=== PATIENT | male | born 1960 | race African-American/Black ===

== ENCOUNTER 2016-11-13 17:03 | Inpatient (IN) | payer OTHER ==
[~2016-11-13] VITALS: Ht 175.3 cm; Wt 98.9 kg
--- NOTE | ~2016-11-13 | EKG ---
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
[~2016-11-13 17:03] MED LIST: ARTIFICIAL TEAR15 M3; ASPIR 8181 MG PO; ASPIRIN EC325 MG PO; ATORVASTATIN CA40 MG; BACTRIM DS TAB1 EAC1 PO; BIOFREEZE118 ML; BUSPIRONE HCL10 MG PO; CARVEDILOL12.5 MG PO; COLACE100 MG PO; COREG25 MG; CYCLOBENZAPRINE5 MG PO; FLONASE 0.05%50 MCG; FLONASE 0.05%50 MCG NASAL; HUMALOG100 UNIT/1; HYDRALAZINE; IRON325 PO; LANTUS SUBQ; LANTUS100 UNIT/M; LEVAQUIN 500 M500 M2 PO; LIDODERM 5%1 PATC1 TRANSDERM; MILK OF MA2400 MG/10; NICOTINE TRANSD21 M1; NICOTINE TRANSD21 M1 TRANSDERM; OXYCODONE HCL10 MG; PEPCID20 MG PO; PERCOCET 5-3251 EACH PO; PLAVIX 75 MG TA75 M1 PO; SENOKOT-S1 TA1 PO; UNICOMPLEX M TA1 TA1 PO; VALIUM5 MG PO; VISTARIL 25 MG25 M1
[2016-11-13 17:11] VITALS: BP 102/67
[2016-11-13 17:39] LABS: HEMATOCRIT 36.4 % (42.0-52.0); HEMOGLOBIN 11.9 gm/dL (14.0-18.0); MCH 26.1 pg (26.0-34.0); MCHC 32.7 % (28.0-37.0); MCV 79.7 fL (80.0-100.0); PLATELET COUNT 479 thou/uL (150-400); RBC 4.57 mil/uL (4.50-6.00); RDW 18.7 % (10.5-14.5); WBC 7.3 thou/uL (4.0-11.0)
[2016-11-13 17:40] LABS: MANUAL DIFF YES
[2016-11-13] MEDS ORDERED: ASPIR 8181 MG PO (17:46)
[2016-11-13] MEDS ORDERED: COREG6.25 MG PO (17:49)
[2016-11-13] MEDS ORDERED: HUMALOG100 UNIT/1 SUBQ (17:54)
[2016-11-13] MEDS ORDERED: LEVEMIR SUBQ (17:55)
[2016-11-13] MEDS ORDERED: MAGNESIUM OXID400 MG PO (17:57)
[2016-11-13] MEDS ORDERED: BENADRYL25 MG PO (17:59)
[2016-11-13] MEDS ORDERED: LASIX 80 MG TAB80 MG PO (18:00)
[2016-11-13] MEDS ORDERED: DUONEB 2.5-0.5 M3 ML INH (18:02)
[2016-11-13] MEDS ORDERED: LEVAQUIN 750 M750 MG PO (18:04)
[2016-11-13] MEDS ORDERED: ANTIVERT25 MG PO (18:05)
[2016-11-13] MEDS ORDERED: BISACODYL5 MG PO (18:07)
[2016-11-13] MEDS ORDERED: TYLENOL325 MG PO (18:10)
[2016-11-13 18:11] LABS: CALCIUM 9.3 mg/dL (8.5-10.1); CREATININE 2.5 mg/dL (0.6-1.3); POTASSIUM 4.3 mmol/L (3.5-5.1)
[2016-11-13] MEDS ORDERED: CARVEDILOL6.25 MG PO (18:11)
[2016-11-13] MEDS ORDERED: VALIUM5 MG PO (18:13)
[2016-11-13] MEDS ORDERED: CARBIDOPA-LEVO1 EAC2 PO (18:15)
[2016-11-13 18:30] LABS: TOTAL CELL COUNT 100
[2016-11-13 19:31] LABS: URINE BILIRUBIN NEGATIVE (Negative); URINE BLOOD NEGATIVE (Negative); URINE COLOR YELLOW; URINE GLUCOSE-RANDOM* NEGATIVE (Negative); URINE KETONES NEGATIVE (Negative); URINE LEUKOCYTES-REFLEX NEGATIVE (Negative); URINE PROTEIN (DIPSTICK) 1+ (Negative); URINE UROBILINOGEN 0.2 E.U./dl (0.2-1.0)
[2016-11-13 19:36] LABS: CASTS None Seen /LPF (None Seen); CRYSTALS None Seen /LPF (None Seen); SQUAMOUS None Seen /LPF (0-3); URINE RBC None Seen /HPF (0-2); URINE WBC-REFLEX 0-5 Rare /HPF (0-5)
[2016-11-13 21:38] VITALS: BP 132/75
[2016-11-13 21:45] VITALS: BP 147/82
[2016-11-14 04:30] VITALS: BP 120/68
[2016-11-14 06:34] LABS: CALCIUM 9.2 mg/dL (8.5-10.1); CREATININE 2.4 mg/dL (0.6-1.3); POTASSIUM 4.2 mmol/L (3.5-5.1)
[2016-11-14 06:37] LABS: ALBUMIN 2.8 g/dL (3.4-5.0)
[2016-11-14 08:21] VITALS: BP 135/81
[2016-11-14 17:30] VITALS: BP 120/69
[2016-11-14 20:00] VITALS: BP 134/82
[2016-11-14 21:53] VITALS: BP 120/69
[2016-11-15 04:00] VITALS: BP 121/69
[2016-11-15 05:58] LABS: HEMATOCRIT 33.5 % (42.0-52.0); HEMOGLOBIN 11.2 gm/dL (14.0-18.0); MCH 26.6 pg (26.0-34.0); MCHC 33.3 % (28.0-37.0); MCV 79.8 fL (80.0-100.0); PLATELET COUNT 477 thou/uL (150-400); RDW 18.4 % (10.5-14.5); WBC 8.9 thou/uL (4.0-11.0)
[2016-11-15 06:25] LABS: MANUAL DIFF YES
[2016-11-15 06:30] LABS: CALCIUM 9.8 mg/dL (8.5-10.1); CREATININE 2.1 mg/dL (0.6-1.3); POTASSIUM 4.1 mmol/L (3.5-5.1)
[2016-11-15 07:40] VITALS: BP 118/69
[2016-11-15 08:34] LABS: ABSOLUTE NEUTROPHILS 5.8 thou/uL (1.4-8.2); ANISOCYTOSIS SLIGHT; POIKILOCYTOSIS SLIGHT; TOTAL CELL COUNT 100
[2016-11-15 16:20] VITALS: BP 119/69
[2016-11-15 20:00] VITALS: BP 118/71
[2016-11-16 04:00] VITALS: BP 123/62
[2016-11-16 05:41] LABS: ABSOLUTE NEUTROPHILS 4.4 thou/uL (1.4-8.2); BASOPHILS 0.9 % (0.0-2.0); HEMATOCRIT 34.2 % (42.0-52.0); HEMOGLOBIN 10.8 gm/dL (14.0-18.0); LYMPHOCYTES 25.2 % (24.0-44.0); MANUAL DIFF NO; MCH 25.6 pg (26.0-34.0); MCHC 31.6 % (28.0-37.0); PLATELET COUNT 441 thou/uL (150-400); POLYS 58.9 % (36.0-66.0); RBC 4.22 mil/uL (4.50-6.00); RDW 17.8 % (10.5-14.5); WBC 7.5 thou/uL (4.0-11.0)
[2016-11-16 05:54] LABS: CREATININE 1.9 mg/dL (0.6-1.3)
[2016-11-16 07:30] VITALS: BP 134/73
[2016-11-16 16:19] VITALS: BP 113/64
[2016-11-16 20:12] VITALS: BP 120/66
[2016-11-17 05:16] VITALS: BP 135/77
[2016-11-17 06:32] LABS: HEMATOCRIT 33.1 % (42.0-52.0); HEMOGLOBIN 10.6 gm/dL (14.0-18.0); MCH 25.7 pg (26.0-34.0); MCHC 32.1 % (28.0-37.0); PLATELET COUNT 439 thou/uL (150-400); RBC 4.13 mil/uL (4.50-6.00); RDW 18.2 % (10.5-14.5); WBC 7.2 thou/uL (4.0-11.0)
[2016-11-17 06:35] LABS: MANUAL DIFF YES
[2016-11-17 06:52] LABS: CALCIUM 9.2 mg/dL (8.5-10.1); CREATININE 1.8 mg/dL (0.6-1.3)
[2016-11-17 08:30] VITALS: BP 146/82
[2016-11-17 09:05] LABS: ABSOLUTE NEUTROPHILS 5.2 thou/uL (1.4-8.2); ANISOCYTOSIS 1+; PLATELET ESTIMATE INCREASED; TOTAL CELL COUNT 100
[2016-11-17] MEDS ORDERED: MIRALAX17 GM PO (10:34)
[2016-11-17] MEDS ORDERED: MUCINEX DM TABL1 TA1 PO (10:34)
[2016-11-17 15:41] VITALS: BP 122/71
[2016-11-17 20:00] VITALS: BP 125/65
[2016-11-18 08:08] VITALS: BP 141/80
[2016-11-18 10:47] LABS: CALCIUM 8.9 mg/dL (8.5-10.1); CREATININE 1.7 mg/dL (0.6-1.3); POTASSIUM 3.6 mmol/L (3.5-5.1)
[2016-11-18 16:14] VITALS: BP 125/73
== END 2016-11-18 18:20 | DRG 682 ==
LOC: ER 17:03 → 4E 20:50 → EROBS 20:50 → 4E 21:40
PROVIDERS: Hospitalist; Physician Assistant
DX: N17.0 Acute kidney failure with tubular necrosis (principal); E43 Unspecified severe protein-calorie malnutrition; I13.0 Hypertensive heart and chronic kidney disease with heart failure and stage 1 through stage 4 chronic kidney disease, or unspecified chronic kidney disease; E87.1 Hypo-osmolality and hyponatremia; K21.9 Gastro-esophageal reflux disease without esophagitis; E11.22 Type 2 diabetes mellitus with diabetic chronic kidney disease; I25.10 Atherosclerotic heart disease of native coronary artery without angina pectoris; F41.9 Anxiety disorder, unspecified; E78.5 Hyperlipidemia, unspecified; E86.0 Dehydration; N18.2 Chronic kidney disease, stage 2 (mild); I50.9 Heart failure, unspecified; I73.9 Peripheral vascular disease, unspecified; Z68.32 Body mass index [BMI] 32.0-32.9, adult; Z89.411 Acquired absence of right great toe
CPT/HCPCS: 10183

== ENCOUNTER 2019-05-09 12:07 | Emergency (ER) | payer OTHER ==
[~2019-05-09] VITALS: Ht 182.9 cm; Wt 90.7 kg
[~2019-05-09 12:07] MED LIST changes: +ANTIVERT25 MG PO; +BENADRYL25 MG PO; +BISACODYL5 MG PO; +CARBIDOPA-LEVO1 EAC2 PO; +CARVEDILOL6.25 MG PO; +COREG6.25 MG PO; +DUONEB 2.5-0.5 M3 ML INH; +HUMALOG100 UNIT/1 SUBQ; +LASIX 80 MG TAB80 MG PO; +LEVAQUIN 750 M750 MG PO; +LEVEMIR SUBQ; +MAGNESIUM OXID400 MG PO; +MIRALAX17 GM PO; +MUCINEX DM TABL1 TA1 PO; +TYLENOL325 MG PO
[2019-05-09 12:19] LABS: URINE BILIRUBIN NEGATIVE (Negative); URINE BLOOD NEGATIVE (Negative); URINE CLARITY CLEAR; URINE COLOR YELLOW; URINE GLUCOSE-RANDOM* NEGATIVE (Negative); URINE KETONES NEGATIVE (Negative); URINE LEUKOCYTES-REFLEX NEGATIVE (Negative); URINE NITRITE-REFLEX NEGATIVE (Negative); URINE PROTEIN (DIPSTICK) TRACE (Negative); URINE UROBILINOGEN 0.2 E.U./dl (0.2-1.0)
[2019-05-09 12:34] LABS: ABSOLUTE NEUTROPHILS 5.7 thou/uL (1.4-8.2)
[2019-05-09 12:38] LABS: BASOPHILS 0.9 % (0.0-2.0); HEMATOCRIT 29.1 % (42.0-52.0); HEMOGLOBIN 9.4 gm/dL (14.0-18.0); LYMPHOCYTES 17.5 % (24.0-44.0); MCH 25.2 pg (26.0-34.0); MCHC 32.4 g/dL (28.0-37.0); MCV 77.9 fL (80.0-100.0); MONOCYTES 7.9 % (1.0-8.0); PLATELET COUNT 376 thou/uL (150-400); POLYS 68.7 % (36.0-66.0); RBC 3.74 mil/uL (4.50-6.00); RDW 16.7 % (10.5-14.5); WBC 8.3 thou/uL (4.0-11.0)
[2019-05-09 12:50] LABS: CREATININE 1.3 mg/dL (0.7-1.3); POTASSIUM 3.8 mmol/L (3.5-5.1)
[2019-05-09 12:56] LABS: ALBUMIN 2.7 g/dL (3.4-5.0); TOTAL BILIRUBIN 0.5 mg/dL (<0.1-1.0); TOTAL PROTEIN 7.9 g/dL (6.4-8.2)
[2019-05-09] MEDS ORDERED: KEFLEX500 M1 PO (14:21)
[2019-05-09] MEDS ORDERED: BACTRIM DS TAB1 EACH PO (14:21)
[2019-05-09 14:30] VITALS: BP 130/59
== END 2019-05-09 14:30 | disposition home or self-care (01) ==
LOC: ER 12:07
PROVIDERS: Emergency Medicine
DX: L02.214 Cutaneous abscess of groin (principal); T84.091A Other mechanical complication of internal left hip prosthesis, initial encounter; E11.9 Type 2 diabetes mellitus without complications; I13.0 Hypertensive heart and chronic kidney disease with heart failure and stage 1 through stage 4 chronic kidney disease, or unspecified chronic kidney disease; N18.9 Chronic kidney disease, unspecified; I50.9 Heart failure, unspecified; I73.9 Peripheral vascular disease, unspecified; F41.9 Anxiety disorder, unspecified; E78.5 Hyperlipidemia, unspecified; M54.9 Dorsalgia, unspecified; G89.29 Other chronic pain; Y83.9 Surgical procedure, unspecified as the cause of abnormal reaction of the patient, or of later complication, without mention of misadventure at the time of the procedure; Y92.89 Other specified places as the place of occurrence of the external cause; Z79.4 Long term (current) use of insulin

== ENCOUNTER 2019-09-06 11:08 | Inpatient (IN) | payer OTHER ==
[~2019-09-06] VITALS: Ht 182.9 cm; Wt 113.4 kg
[2019-09-06] VITALS (8 sets, daily range): BP systolic 93–140; BP diastolic 43–70
[~2019-09-06 11:08] MED LIST changes: +BACTRIM DS TAB1 EACH PO; -CARVEDILOL6.25 MG PO; +KEFLEX500 M1 PO
[2019-09-06 11:42] LABS: HEMATOCRIT 27.4 % (42.0-52.0); HEMOGLOBIN 8.4 gm/dL (14.0-18.0); MCH 24.3 pg (26.0-34.0); MCHC 30.8 g/dL (28.0-37.0); MCV 78.9 fL (80.0-100.0); PLATELET COUNT 302 thou/uL (150-400); RBC 3.48 mil/uL (4.50-6.00); RDW 16.7 % (10.5-14.5); WBC 12.9 thou/uL (4.0-11.0)
[2019-09-06 11:44] LABS: BE(vivo) -2.2 mmol/L (-2 to +3); HCO3 24.8 mmol/L (22.0-26.0); PCO2 53.9 mmHg (35.0-45.0); PO2 83.3 mmHg (80.0-100.0); sO2 94.8 % (92.0-98.0)
[2019-09-06 11:46] LABS: pH 7.281 (7.360-7.450)
[2019-09-06 11:52] LABS: ANION GAP 11 mmol/L (7-16); BUN 56 mg/dL (7-18); CHLORIDE 91 mmol/L (98-107); CO2 25 mmol/L (21-32); CREATININE 3.6 mg/dL (0.7-1.3); GLUCOSE 129 mg/dL (74-106); POTASSIUM 5.4 mmol/L (3.5-5.1); SODIUM 127 mmol/L (136-145)
[2019-09-06 12:00] LABS: MAGNESIUM 1.8 mg/dL (1.8-2.4); TROPONIN-I <0.06 ng/mL (<0.06)
[2019-09-06 12:17] LABS: ABSOLUTE NEUTROPHILS 9.7 thou/uL (1.4-8.2); METAMYELOCYTES 3 %; PLATELET ESTIMATE NORMAL
[2019-09-06 14:39] LABS: BE(vivo) -1.5 mmol/L (-2 to +3); HCO3 25.9 mmol/L (22.0-26.0); PCO2 58.6 mmHg (35.0-45.0); PO2 143.1 mmHg (80.0-100.0); pH 7.264 (7.360-7.450); sO2 98.4 % (92.0-98.0)
--- NOTE | 2019-09-06 14:58 | NUR ---
REPORT CALLED TO ANGELA LINDO AT 4693.
[2019-09-06 15:03] LABS: FOLIC ACID 19.9 ng/mL (8.6-58.9)
--- NOTE | 2019-09-06 15:32 | 2DMMODE ---
[facility] [place] [address] 2 D/M-MODE ECHOCARDIOGRAM Name: GILDARDOPALAK QUAN Room #: 170-4 ADM IN ..#: [id number] Admission: 09/06/19 Attend Phys: Jin Ness MD Discharge: Date of : 58 Report #: [id number] THIS REPORT FOR: //name// APPROVED REPORT Study performed: 09/06/2019 14:33:59 EXAM: Comprehensive 2D, Doppler, and color-flow Echocardiogram Patient Location: ER Room #: 4 Status: routine BSA: 2.34 HR: 88 bpm BP: 94/54 mmHg Rhythm: NSR Other Information Study Quality: Adequate Indications Diabetes Dyspnea Hypertension/HDD Respiratory failure 2D Dimensions RVDd: 42.21 mm IVSd: 8.85 (7-11mm) LVOT Diam: 21.83 (18-24mm) LVDd: 54.55 mm PWd: 5.85 (7-11mm) Ascending Ao: 27.50 (22-36mm) LVDs: 43.80 (25-40mm) Aortic Root: 30.37 mm IVC: 20.00 mm Volumes Left Atrial Volume (Systole) Single Plane 4CH: 74.69 mL Single Plane 2CH: 59.14 mL LA ESV Index: 32.00 mL/m2 Aortic Valve AoV Peak Toby.: 1.17 m/s AO Peak Gr.: 5.43 mmHg LVOT Max P.90 mmHg LVOT Max V: 0.85 m/s KENNEY Vmax: 2.73 cm2 Mitral Valve [facility] [address] [place] [address] 2 D/M-MODE ECHOCARDIOGRAM Name: PALAK EWING Room #: 170-4 [facility] IN [facility]#: [id number] Admission: 09/06/19 Attend Phys: Jin Ness MD Discharge: Date of : 58 Report #: [id number] E/A Ratio: 1.2 MV Decel. Time: 133.91 ms MV E Max Toby.: 1.03 m/s MV A Toby.: 0.83 m/s MV PHT: 38.83 ms IVRT: 69.20 ms Pulmonary Valve PV Peak Toby.: 0.83 m/s PV Peak Gr.: 2.73 mmHg Tricuspid Valve TR Peak Toby.: 3.80 m/s TR Peak Gr.: 57.83 mmHg PA Pressure: 68.00 mmHg Left Ventricle Left ventricle is at the upper limits of normal. There is akinesis in the inferior wall. There is akinesis in the posterior wall. There is severe hypokinesis in the lateral wall. There is normal left ventricular wall thickness. Left ventricular ejection fraction is mild to moderately decreased. LVEF is 35-40%. Grade IV - fixed restrictive diastolic dysfunction. Right Ventricle Right ventricle is at the upper limits of normal. The right ventricular systolic function is normal. Atria Left atrium is at the upper limits of normal. Right atrium is at the upper limits of normal. Aortic Valve The aortic valve is normal in structure. No aortic regurgitation is present. There is no aortic valvular stenosis. Mitral Valve The mitral valve is normal in structure. Mild mitral regurgitation. No evidence of mitral valve stenosis. Tricuspid Valve The tricuspid valve is normal in structure. There is mild tricuspid regurgitation. Estimated PAP 68 mmHg. There is moderate pulmonary hypertension. Pulmonic Valve The pulmonary valve is normal in structure. There is no pulmonic [facility] [address] [place] [address] 2 D/M-MODE ECHOCARDIOGRAM Name: PALAK EWING QUAN Room #: 170-4 ADM IN .R.#: [id number] Admission: 09/06/19 Attend Phys: Jin Ness MD Discharge: Date of : 58 Report #: [id number] valvular regurgitation. Great Vessels The aortic root is normal in size. IVC is dilated and collapses <50% with inspiration. Pericardium There is no pericardial effusion. <Conclusion> Left ventricle is at the upper limits of normal. Left ventricular ejection fraction is mild to moderately decreased. There is akinesis in the inferior wall. There is akinesis in the posterior wall. There is severe hypokinesis in the lateral wall. LVEF is 35-40%. Grade IV - fixed restrictive diastolic dysfunction. Right ventricle is at the upper limits of normal. Left atrium is at the upper limits of normal. The aortic valve is normal in structure. Mild mitral regurgitation. There is mild tricuspid regurgitation. Estimated PAP 68 mmHg. There is moderate pulmonary hypertension. The aortic root is normal in size. There is no pericardial effusion. <ELECTRONICALLY SIGNED> By: Emmanuel Wheeler MD, FACC 09/06/19 [phone] Emmanuel Wheeler MD, FACC /INF
[2019-09-06] MEDS ORDERED: COLACE100 MG PO ×2 (17:34)
[2019-09-06] MEDS ORDERED: ALLEGRA ALLERGY60 MG PO (17:36)
[2019-09-06] MEDS ORDERED: OXYCODONE HCL5 M1 PO (17:41)
[2019-09-06] MEDS ORDERED: PERCOCET 5-3251 EACH PO (17:42)
[2019-09-06] MEDS ORDERED: LIPITOR40 MG PO (18:08)
[2019-09-06] MEDS ORDERED: ALPRAZOLAM XR3 MG PO (18:08)
[2019-09-06] MEDS ORDERED: BASAGLAR K100 UNIT/1 SUBQ (18:09)
[2019-09-06] MEDS ORDERED: BISACODYL10 MG RECTAL (18:10)
[2019-09-06] MEDS ORDERED: CAL-GEST200 MG PO (18:11)
[2019-09-06] MEDS ORDERED: CYCLOBENZAPRINE10 MG PO (18:12)
[2019-09-06] MEDS ORDERED: FLONASE 0.05%50 MCG NARES (18:13)
[2019-09-06] MEDS ORDERED: SLOW FE142 MG PO (18:13)
[2019-09-06] MEDS ORDERED: NEURONTIN100 MG PO (18:14)
[2019-09-06] MEDS ORDERED: FUROSEMIDE 40 M40 MG PO (18:14)
[2019-09-06] MEDS ORDERED: HUMIRA PEN40 MG/0.4 SUBQ (18:16)
[2019-09-06] MEDS ORDERED: HYDROCORTISONE120 M1 TOP (18:17)
[2019-09-06] MEDS ORDERED: HYDROXYZINE HCL25 M2 PO (18:18)
[2019-09-06] MEDS ORDERED: LACTULOSE10 GM/152 PO (18:20)
[2019-09-06] MEDS ORDERED: LOPERAMIDE2 MG PO (18:21)
[2019-09-06] MEDS ORDERED: MILK OF MA400 MG/5 M PO (18:22)
[2019-09-06] MEDS ORDERED: MINERIN CREME113 GM TOP (18:23)
[2019-09-06] MEDS ORDERED: MONTELUKAST SODI4 M1 PO (18:24)
[2019-09-06] MEDS ORDERED: NAPROXEN SODIU220 M2 PO (18:24)
[2019-09-06] MEDS ORDERED: OMEPRAZOLE 20 M20 M1 PO (18:25)
[2019-09-06] MEDS ORDERED: MIRALAX17 GM PO (18:26)
[2019-09-06] MEDS ORDERED: PROMETHAZINE PO (18:27)
[2019-09-06] MEDS ORDERED: GAS RELIEF80 MG PO (18:28)
[2019-09-06] MEDS ORDERED: VENTOLIN HFA INH8 GM INH (18:28)
[2019-09-06] MEDS ORDERED: RISPERDAL0.5 MG PO (18:28)
[2019-09-06] MEDS ORDERED: VITAMIN B-121000 MC2 SUBLING (18:29)
--- NOTE | 2019-09-06 19:03 | NUR ---
PT. ARRIVED AT FLOOR AROUND 1600; PT. ALERT; ST. WANTS MASK OF; BYPAP; EDUCATED ABOUT THE NEED OF BYPAP ON; STRONG ODOR COMMING FROM [place]; ALERT TO PERSON; KNOWS IS THE HOSPITAL, BUT NOT NAME; ST. WANTS TO GO HOME; EDUCATED ABOUT THE NEED TO STAY; ORDERS RECEIVED; AROUND 1700 DR. MEDRANO AT THE BED SIDE; REQUEST TRANSFER TO ICU; ORDERS RECEIVED; GAS MAKER NOTIFIED; CALLED REPORT TO K; AROUND 1745 PT. TRANSFER TO ICU; ADMISSION PERFORMED; ASSESSMENT CHARGED;
--- NOTE | 2019-09-06 19:13 | NUR ---
ASSESSMENTS AND INTERVENTIONS DOCCUMENTED. PATIENT TRANSFERRED TO THE UNIT VIA RT AND CCU RN AT 1820.
[2019-09-06 19:35] LABS: % SATURATION 8 % (20-39); IRON 10 ug/dL (65-175); TIBC 127 ug/dL (250-450)
[2019-09-07] VITALS (20 sets, daily range): BP systolic 92–147; BP diastolic 52–84
[2019-09-07 05:18] LABS: ABSOLUTE NEUTROPHILS 10.7 thou/uL (1.4-8.2); BASOPHILS 0.1 % (0.0-2.0); EOSINOPHILS 0.4 % (0.0-3.0); HEMATOCRIT 26.4 % (42.0-52.0); HEMOGLOBIN 8.1 gm/dL (14.0-18.0); LYMPHOCYTES 6.2 % (24.0-44.0); MCH 24.5 pg (26.0-34.0); MCHC 30.5 g/dL (28.0-37.0); MCV 80.2 fL (80.0-100.0); MONOCYTES 3.3 % (1.0-8.0); PLATELET COUNT 285 thou/uL (150-400); RDW 16.5 % (10.5-14.5); WBC 11.9 thou/uL (4.0-11.0)
[2019-09-07 05:32] LABS: ALBUMIN 2.2 g/dL (3.4-5.0); ANION GAP 12 mmol/L (7-16); BUN 63 mg/dL (7-18); CALCIUM 8.3 mg/dL (8.5-10.1); CHLORIDE 93 mmol/L (98-107); CHOLESTEROL 84 mg/dL (<200); CO2 24 mmol/L (21-32); CREATININE 3.6 mg/dL (0.7-1.3); GLUCOSE 127 mg/dL (74-106); HDL CHOLESTEROL 8 mg/dL (>40); LDL CHOLESTEROL 49 mg/dL (<100); MAGNESIUM 1.8 mg/dL (1.8-2.4); POTASSIUM 5.8 mmol/L (3.5-5.1); SODIUM 129 mmol/L (136-145); TC:HDL 10.5 Ratio (Not establshd); TRIGLYCERIDE 137 mg/dL (<150); VLDL 27 mg/dL (<40)
[2019-09-07 05:50] LABS: SERUM ASSESSMENT Clear
[2019-09-07 06:08] LABS: GLYCOHEMOGLOBIN (HGB A1C) 9.3 % (4.8-5.6)
[2019-09-07 06:26] LABS: URINE BILIRUBIN NEGATIVE (Negative); URINE BLOOD 3+ (Negative); URINE CLARITY CLOUDY; URINE COLOR YELLOW; URINE GLUCOSE-RANDOM* NEGATIVE (Negative); URINE KETONES TRACE (Negative); URINE LEUKOCYTES-REFLEX 2+ (Negative); URINE NITRITE-REFLEX NEGATIVE (Negative); URINE PROTEIN (DIPSTICK) 1+ (Negative); URINE UROBILINOGEN 0.2 E.U./dl (0.2-1.0)
[2019-09-07 06:33] LABS: AMP/METHAMP Negative (Negative); BARBITURATES Negative (Negative); BENZODIAZEPINES Negative (Negative); COCAINE Negative (Negative); METHADONE Negative (Negative); OPIATES POSITIVE (Negative); PCP Negative (Negative)
[2019-09-07 06:40] LABS: AMORPHOUS URATES Moderate /LPF (None Seen); SQUAMOUS 0-3 Few /LPF (0-3)
[2019-09-07 06:41] LABS: URINE WBC-REFLEX 6-15 Few /HPF (0-5)
[2019-09-07 06:42] LABS: URINE CREATININE-RANDOM* 49.8 mg/dL
[2019-09-07 06:45] LABS: COARSE GRANULAR CASTS 4-10 Moderate /LPF (None Seen)
[2019-09-07 08:05] LABS: INR 1.1; PROTIME 11.9 Seconds (9.3-11.4)
[2019-09-07 08:40] LABS: BE(vivo) -6.9 mmol/L (-2 to +3); HCO3 19.9 mmol/L (22.0-26.0); PCO2 46.1 mmHg (35.0-45.0); PO2 101.8 mmHg (80.0-100.0); pH 7.254 (7.360-7.450); sO2 96.7 % (92.0-98.0)
[2019-09-07 08:42] LABS: APTT 43.9 Seconds (24.5-32.8)
--- NOTE | 2019-09-07 11:15 | NUR ---
Case opened to follow for dc planning. Pt is a ltc resident at [facility] and has lived there for over a year. He was at [facility] prior to that. They are holding his bed and note that he has skilled Medicare days available if needed at dc. PT/OT/ST ordered. He is currently in ICU with sepsis/pneumonia. Pt noted to have buttock wound as well. [facility] updated. The pt is a&ox4 but forgetful and frequently repeats the same question. He confirmed his sister suresh is his emergency contact. [facility] indicates his dtr occasionally comes to visit. He is nonambulatory but is up in a w/c most days with an ackward sitting posture. He has his cell phone in a pouch around his neck. He has $32 in wood and he requested it be sent to security. Security notified and they have retrieved it. Will follow along and assist with dc to SNF at [facility] when medically ready.
--- NOTE | 2019-09-07 12:51 | NUR ---
WOUND CONSULT; THIS PATIENT IS VERY AGITATED AND AND CONFUSED. THE BILATERAL BUTTOCKS AND SACRAL WOUNDS LOOK LIKE THE EARLY ETIOLOGY WAS LIKELY FRICTION, BUT IMPOSSIBLE TO TELL. NOW THAT THE TISSUES ARE OPEN AND MORE VULNERABLE TO PRESSURE FORCES AND INFECTION IT IS CURRENTLY A STAGE 3 AND WAS PRESENT ON ADMISSION. RECOMMENDATIONS; ZGUARD TO WOUND BED, COVER WITH ABD, DAILY/PRN. RN PRESENT
--- NOTE | 2019-09-07 13:04 | NUR ---
CHART REVIEWED. [facility] AND STAFF USES A LIFT WITH Pt TO GET HIM IN A RECLINED W/C. Pt NOT APPROPRIATE FOR SKILLED P.T.
[2019-09-07 13:23] LABS: CALCIUM 8.5 mg/dL (8.5-10.1); CREATININE 3.6 mg/dL (0.7-1.3); POTASSIUM 5.1 mmol/L (3.5-5.1)
[2019-09-07 13:27] LABS: ALBUMIN 2.1 g/dL (3.4-5.0); PHOSPHORUS 6.2 mg/dL (2.5-4.9)
--- NOTE | 2019-09-07 17:14 | NUR ---
PT IS A GCS OF 14, CO PAIN TO BACK AND LEGS A TIMES. VSS, PT AFIBRILE. ORDERS RCVD TO TRANSFER PT OUT OF ICU. REPORT CALLED AND GIVEN TO ACCEPTING NURSE. THIS NURSE TRIED TO NOTIFY THE FAMILY BUT UNABLE TO GET A HOLD OF ANYONE ON RECORDS.
--- NOTE | 2019-09-07 17:36 | NUR ---
ASSUMMED PT CARE AT APPROXIMATEY 1630. PT A&O X4. ASSESSMENT CHARTED. FALL PRECAUTIONS IN PLACE. VITAL SIGNS STABLE. PT DENIES HAVING CHEST PAIN. PT DENIES HAVING SOB. PT STATED HE HAS CHRONIC BACK PAIN. PT RECEIVED ANALGESICS FOR PAIN. PT STATED ANALGESICS HELPED RELIEVE PAIN. PT COMFORTABLE IN BED. PT DENIES HAVING FURTHER CONCERNS AT THIS TIME.
[2019-09-08 04:13] LABS: CALCIUM 8.4 mg/dL (8.5-10.1); CREATININE 3.1 mg/dL (0.7-1.3); POTASSIUM 5.3 mmol/L (3.5-5.1)
[2019-09-08 04:30] VITALS: BP 130/76
[2019-09-08 04:36] LABS: HEMATOCRIT 24.8 % (42.0-52.0); HEMOGLOBIN 7.7 gm/dL (14.0-18.0); MCH 24.4 pg (26.0-34.0); MCV 78.8 fL (80.0-100.0); RBC 3.15 mil/uL (4.50-6.00); RDW 16.7 % (10.5-14.5); WBC 9.9 thou/uL (4.0-11.0)
--- NOTE | 2019-09-08 05:10 | NUR ---
ASSUMED PT CARE AT 1900. PT IS ALERT AND CONFUSED. PT IS AGITATED TOWARDS RN THROUGH OUT THE SHIFT. FALL PRECAUTION IN PLACE PT REFUSED SOME SCHEDULED MEDS. PT HAD STATED HE WAS GETTING POSIONED SO HE DIDNT WANT TO TAKE HIS MEDICATION. PT WAS AGITATED THROUGHOUT THE NIGHT. DENIES ANY FURTHER NEEDS AT TIME.
[2019-09-08 08:07] VITALS: BP 168/104
--- NOTE | 2019-09-08 12:12 | EKG ---
[address] [address] ELECTROCARDIOGRAM REPORT Name: PALAK EWING QUAN Room #: 210-P ADM IN M.R.#: [id number] Admission: 09/06/19 Attend Phys: Jin Ness MD Discharge: Date of : 58 Report #: [id number] THIS REPORT FOR: //name// [facility] ED Test Date: 2019-09-06 Test Time: 11:15:25 Pat Name: PALAK EWING Department: Room: 210 Gender: M Night Custodian: : 1960 Requested By: Harsh Sousa Order Number: [id number] MD: Henri Keller Measurements Intervals Balko Rate: 92 P: 4 IA: 164 QRS: 235 QRSD: 121 T: 15 QT: 391 QTc: 484 Interpretive Statements Sinus rhythm Nonspecific intraventricular conduction delay Compared to ECG 11/13/2016 17:39:15 Intraventricular conduction delay now present Myocardial infarct finding no longer present T-wave abnormality no longer present Electronically Signed On 09-08-2019 12:12:31 MUSEUM GUIDE by Henri Keller [email or web address] <ELECTRONICALLY SIGNED> By: Henri Keller MD 09/08/19 1212 1115 1115 Henri Keller MD /TRUNG
--- NOTE | 2019-09-08 12:20 | NUR ---
[facility] SPOKE WITH LATESHA IN ADM SHE RECEIVED UPDATE.
--- NOTE | 2019-09-08 15:12 | NUR ---
No weekend dc anticipated. [facility] updated per the dc supply planner. Will reassess wednesday for dc back to their SNF. Pt is being seen by therapy and wound care.
[2019-09-08 16:36] VITALS: BP 139/81
[2019-09-08 20:48] VITALS: BP 122/75
[2019-09-09 05:31] VITALS: BP 123/72
[2019-09-09 05:39] LABS: HEMATOCRIT 24.9 % (42.0-52.0); HEMOGLOBIN 7.8 gm/dL (14.0-18.0); MCH 24.6 pg (26.0-34.0); MCHC 31.2 g/dL (28.0-37.0); MCV 78.7 fL (80.0-100.0); RBC 3.16 mil/uL (4.50-6.00); RDW 16.7 % (10.5-14.5); WBC 9.5 thou/uL (4.0-11.0)
[2019-09-09 05:52] LABS: ALBUMIN 2.1 g/dL (3.4-5.0); CALCIUM 8.1 mg/dL (8.5-10.1); CREATININE 2.6 mg/dL (0.7-1.3); PHOSPHORUS 4.4 mg/dL (2.5-4.9); POTASSIUM 4.9 mmol/L (3.5-5.1)
--- NOTE | 2019-09-09 06:30 | NUR ---
ALERT.FORGETFUL.REFUSED TO BE TURNED.PAIN WELL CONTROLLED.NS AT 75 ML/HR.ALATORRE TO DD.MONITOR SHOWS SR,SB.O2 2L NC.WILL CONTINUE POC.
--- NOTE | 2019-09-09 10:27 | NUR ---
ORIENTED TO SELF. REPORTEDLY CAN BE COMBATIVE, CALM NOW. ALLOWS BLOOD GLUCOSE TAKEN. MRSA ISOLATION. REPOSITIONED FOR BREAKFAST, APPETITE BRISK AFTER TRAY SETUP. BUN 67, CR 2.6 NOTED. SR/SB PER TELE. FREQUENT ROUNDING; WILL CONTINUE TO MONITOR.
[2019-09-09 19:35] VITALS: BP 134/78
[2019-09-10 04:32] LABS: ALBUMIN 2.2 g/dL (3.4-5.0); CALCIUM 8.5 mg/dL (8.5-10.1); CREATININE 2.4 mg/dL (0.7-1.3); PHOSPHORUS 3.9 mg/dL (2.5-4.9); POTASSIUM 4.9 mmol/L (3.5-5.1)
[2019-09-10 06:07] VITALS: BP 123/69
--- NOTE | 2019-09-10 06:19 | NUR ---
ALERT.FORGETFUL.REFUSED TO BE TURNED.PAIN WELL CONTROLLED.COMPLAIN OF COUGH AFTER GUIAFENESIN WAS GIVEN.PATIENT REQUESTED FOR BENADRYL.CELI TO LIZZETTE.MONITOR SHOWS SINUS RHYTHM.POC CONTINUED.
[2019-09-10 08:00] VITALS: BP 127/73
[2019-09-10 12:00] VITALS: BP 138/75
[2019-09-10 16:00] VITALS: BP 133/75
--- NOTE | 2019-09-10 16:01 | NUR ---
ASSUMED CARE AT 0700, SHIFT ASSESSMENT DONE, MEDS GIVEN, VSS. REPORTED BACK PAIN, PRN PAIN MEDS GIVEN. RECEIVING IV ANTIBIOTICS. NSR ON TELE. HAD A BM TODAY. WOUND CARE DONE. WILL CONTINUE TO ASSESS AND ASSIST WITH ADLs NEEDED.
[2019-09-10 19:49] VITALS: BP 141/73
--- NOTE | 2019-09-11 03:58 | NUR ---
ALERT.FORGETFUL.REFUSED TO BE TURNED.PAIN WELL CONTROLLED.PATIENT STATES HE DIDN'T SLEEP EVEN AFTER RECEIVING BENADRYL REQUESTED.MONITOR SHOWS SINUS RHYTHM.PATIENT IS HOPING TO GO BACK TO [facility] TODAY.POC CONTINUED.
[2019-09-11 04:37] LABS: HEMATOCRIT 27.2 % (42.0-52.0); HEMOGLOBIN 8.3 gm/dL (14.0-18.0); MCH 24.2 pg (26.0-34.0); MCHC 30.7 g/dL (28.0-37.0); MCV 78.9 fL (80.0-100.0); RBC 3.45 mil/uL (4.50-6.00); RDW 16.9 % (10.5-14.5); WBC 16.7 thou/uL (4.0-11.0)
[2019-09-11 04:49] LABS: ALBUMIN 2.2 g/dL (3.4-5.0); CALCIUM 8.3 mg/dL (8.5-10.1); CREATININE 2.1 mg/dL (0.7-1.3); PHOSPHORUS 3.5 mg/dL (2.5-4.9); POTASSIUM 5.1 mmol/L (3.5-5.1)
[2019-09-11 05:35] VITALS: BP 151/75
[2019-09-11 07:40] VITALS: BP 153/84
--- NOTE | 2019-09-11 11:22 | NUR ---
WOUND CARE F/U assessed pt w/ staffing operations manager TAMIKA, cooperative and agreeable to turning and performing wound care, sacral area still excoriated w/ bleeding left buttock cheek, some healing present, strongly encouraged pt to off loading, turn more frequently, photos taken as dc possible today, dry ulcer left great toe, no drainage, painted w/ betadine RECOMMENDATIONS; cont current tx w/ turning and off loading more
[2019-09-11 11:40] VITALS: BP 140/77
--- NOTE | 2019-09-11 12:05 | NUR ---
ASSUMED CARE AT 0700, SHIFT ASSESSMENT DONE, MEDS GIVEN, VSS. REPORTED PAIN, PRN PAIN MEDS GIVEN. PATENT LEGAL ASSISTANT HERE THIS AM, WOUND DRESSING CHANGE DONE, PHOTOGRAPH TAKEN. POSSIBLE DC TODAY. AWAITING FOR CHEST XRAY AND URINALYSIS. NSR ON TELE, 2LNC, WILL CONTINUE TO ASSESS AND ASSIST WITH ADLs NEEDED.
[2019-09-11 12:18] LABS: URINE BILIRUBIN NEGATIVE (Negative); URINE BLOOD 2+ (Negative); URINE CLARITY CLEAR; URINE COLOR YELLOW; URINE GLUCOSE-RANDOM* TRACE (Negative); URINE KETONES NEGATIVE (Negative); URINE LEUKOCYTES-REFLEX NEGATIVE (Negative); URINE NITRITE-REFLEX NEGATIVE (Negative); URINE PROTEIN (DIPSTICK) NEGATIVE (Negative); URINE UROBILINOGEN 0.2 E.U./dl (0.2-1.0)
[2019-09-11 12:27] LABS: BACTERIA-REFLEX 1-9 Few /HPF (None Seen); CASTS None Seen /LPF (None Seen); CRYSTALS None Seen /LPF (None Seen); SQUAMOUS None Seen /LPF (0-3); URINE RBC 3-10 Few /HPF (0-2); URINE WBC-REFLEX 0-5 Rare /HPF (0-5)
[2019-09-11] MEDS ORDERED: MUCINEX600 MG PO (12:54)
[2019-09-11] MEDS ORDERED: TORSEMIDE20 MG PO (12:54)
[2019-09-11] MEDS ORDERED: PULMICORT0.5 MG/21 INH (12:54)
[2019-09-11] MEDS ORDERED: AUGMENTIN 875-1 EACH PO (12:57)
--- NOTE | 2019-09-11 13:43 | NUR ---
PT DISCHARGING TODAY [place] [facility] [place] DC ORDERS/SUMMARY TO FACILITY RECEIVED CONFIRMATON AND SPOKE WITH LATESHA IN ADM SHE ARRANGED TRANSPORT BY [facility] FOR 1630 TODAY. NOTIFIED PT'S SISTER (DAVID) OF DC AND TIME OF TRANSPORT. UNIT NOTIFIED AND CHART COPY PER US. RN TO CALL REPORT TO [phone].
--- NOTE | 2019-09-12 06:24 | HC ---
[facility] [place] [address] CONSULTATION Name: PALAK EWING Room #: 210-P [facility] IN M.R.#: [id number] Admission: 09/06/19 Attend Phys: Jin Ness MD Discharge: 09/11/19 Date of : 58 Report #: [id number] THIS REPORT FOR: //name// CC: Jin Ness Svetlana Valencia DATE OF SERVICE: 09/08/2019 REASON FOR CONSULTATION: Elevated creatinine. HISTORY OF PRESENT ILLNESS: History is obtained from the medical charts. The patient is a very poor historian. He is not able to provide me with any details about his medical problems. He presented from his [facility] with shortness of breath and hypoxemia. He is known to have hypertension, heart failure, DVT with peripheral vascular disease. He is also known to have osteomyelitis, status post an amputation of his right big toe. The patient was sent to our facility because of hypoxemia. He was also on the hypotensive side. The patient is known to have longstanding diabetes mellitus and hypertension. Labs on presentation showed that the patient's creatinine was elevated at 3.6 with persistent hyperkalemia. I am being consulted to manage his chronic kidney disease. Unfortunately, the patient does not know his baseline. MEDICATIONS: Listed amongst his medications the followin. Sulfamethoxazole. 2. Atorvastatin. 3. Gabapentin. 4. Lasix. 5. Joan. 6. Albuterol. 7. Naproxen. 8. Loperamide. 9. Insulin. 10. Humira for unclear reasons to me. PAST MEDICAL HISTORY: Extensive and includes the followin. Diabetes mellitus. 2. Hypertension. 3. History of osteomyelitis post-amputation of his big toe. 4. Immunocompromised status. 5. Peripheral vascular disease. 6. Deep venous thrombosis. 7. Ankylosing spondylitis. 8. Hyperlipidemia. 9. Low back pain. 10. Cholecystectomy. 11. Remote history of bile duct dilatation. [facility] [address] [place] [address] CONSULTATION Name: PALAK EWING QUAN Room #: 210-[facility] IN [facility].#: [id number] Admission: 09/06/19 Attend Phys: Jin Ness MD Discharge: 09/11/19 Date of : 58 Report #: [id number] 12. Bilateral hip replacement. SOCIAL HISTORY: Unobtainable given the patient's mental status; however, it does look like that he resides in a nursing facility. ALLERGIES: NSAIDs. FAMILY HISTORY: Unobtainable given the patient's mental status. REVIEW OF SYSTEMS: Unobtainable given the patient's mental status. PHYSICAL EXAMINATION: GENERAL: He is disoriented. VITAL SIGNS: Blood pressure is 130/76, pulse rate is 72, temperature is 36.6. HEAD AND NECK: No jugular venous distention. CHEST: Decreased air entry bilaterally. CARDIOVASCULAR: No rub detected. ABDOMEN: Soft, nontender. LOWER EXTREMITIES: Chronic venous stasis changes with missing and amputated great toe on the right side. LABORATORY DATA: Laboratory values reviewed. Sodium is 131, potassium is 5.3, BUN is 68, creatinine is down to 3.1. UA with +1 protein and dirty looking appearance with red blood cells, white blood cells. Cultures are pending. ASSESSMENT, IMPRESSION AND PLAN: 1. Acute kidney injury. 2. Chronic kidney disease with an unknown baseline. 3. Cardiomyopathy. 4. Remote history of ____ status, maintained on Humira. 5. Pulmonary hypertension. 6. Acute respiratory failure with hypoxemia. 7. Pneumonia. 8. Hypotension on presentation. 9. Hyperkalemia. The patient's creatinine seems to be improving, not sure about his baseline. His hyperkalemia is persistent and I will initiate him on appropriate medication for that. It does look like that the recent worsening of his creatinine and hyperkalemia is due to the recently started Bactrim or Septra and this should resolve. Urine output seems to be adequate. 10. Continue IV fluid. 11. We will continue to follow. <ELECTRONICALLY SIGNED> By: Jasmeet Mike MD 09/12/19 0624 0700 0739 Jasmeet Mike MD /nt
== END 2019-09-11 17:04 | DRG 871 ==
LOC: ER 11:08 → ICU 13:24 → EROBS 13:24 → 2N 15:46 → ICU 17:34 → 2N 09-07 16:26
PROVIDERS: Emergency Medicine; Hospitalist; Internal Medicine Pulmonary Disease; Nurse Practitioner; ADMIT Hospitalist
PROC: 5A09357 Assistance with Respiratory Ventilation, Less than 24 Consecutive Hours, Continuous Positive Airway Pressure (ICD-10-PCS; principal; 2019-09-06)
DX: A41.9 Sepsis, unspecified organism (principal); L89.153 Pressure ulcer of sacral region, stage 3; J96.21 Acute and chronic respiratory failure with hypoxia; G93.41 Metabolic encephalopathy; I50.43 Acute on chronic combined systolic (congestive) and diastolic (congestive) heart failure; J96.22 Acute and chronic respiratory failure with hypercapnia; J15.212 Pneumonia due to Methicillin resistant Staphylococcus aureus; I13.0 Hypertensive heart and chronic kidney disease with heart failure and stage 1 through stage 4 chronic kidney disease, or unspecified chronic kidney disease; N17.9 Acute kidney failure, unspecified; E87.1 Hypo-osmolality and hyponatremia; I42.9 Cardiomyopathy, unspecified; E11.51 Type 2 diabetes mellitus with diabetic peripheral angiopathy without gangrene; N18.9 Chronic kidney disease, unspecified; E11.22 Type 2 diabetes mellitus with diabetic chronic kidney disease; E78.5 Hyperlipidemia, unspecified; F41.9 Anxiety disorder, unspecified; K21.9 Gastro-esophageal reflux disease without esophagitis; G89.29 Other chronic pain; M54.9 Dorsalgia, unspecified; F17.210 Nicotine dependence, cigarettes, uncomplicated; E86.0 Dehydration; E87.5 Hyperkalemia; R14.0 Abdominal distension (gaseous); D64.9 Anemia, unspecified; Z96.643 Presence of artificial hip joint, bilateral; I27.20 Pulmonary hypertension, unspecified; I95.9 Hypotension, unspecified; R65.20 Severe sepsis without septic shock; I25.10 Atherosclerotic heart disease of native coronary artery without angina pectoris; I08.1 Rheumatic disorders of both mitral and tricuspid valves; E11.65 Type 2 diabetes mellitus with hyperglycemia; G31.9 Degenerative disease of nervous system, unspecified; Z79.899 Other long term (current) drug therapy; Z79.4 Long term (current) use of insulin; Z88.8 Allergy status to other drugs, medicaments and biological substances; Z86.718 Personal history of other venous thrombosis and embolism; Z89.411 Acquired absence of right great toe; Z90.49 Acquired absence of other specified parts of digestive tract
CPT/HCPCS: 10078; 10081

== ENCOUNTER 2020-11-05 16:52 | Inpatient (IN) | payer OTHER ==
[~2020-11-05] VITALS: Ht 170.2 cm; Wt 74.8 kg
[2020-11-05 16:52] VITALS: BP 139/64
[~2020-11-05 16:52] MED LIST changes: +ALLEGRA ALLERGY60 MG PO; +ALPRAZOLAM XR3 MG PO; +AUGMENTIN 875-1 EACH PO; +BASAGLAR K100 UNIT/1 SUBQ; +BISACODYL10 MG RECTAL; +CAL-GEST200 MG PO; +CYCLOBENZAPRINE10 MG PO; +FLONASE 0.05%50 MCG NARES; +FUROSEMIDE 40 M40 MG PO; +GAS RELIEF80 MG PO; +HUMIRA PEN40 MG/0.4 SUBQ; +HYDROCORTISONE120 M1 TOP; +HYDROXYZINE HCL25 M2 PO; +LACTULOSE10 GM/152 PO; +LIPITOR40 MG PO; +LOPERAMIDE2 MG PO; +MILK OF MA400 MG/5 M PO; +MINERIN CREME113 GM TOP; +MONTELUKAST SODI4 M1 PO; +MUCINEX600 MG PO; +NAPROXEN SODIU220 M2 PO; +NEURONTIN100 MG PO; +OMEPRAZOLE 20 M20 M1 PO; +OXYCODONE HCL5 M1 PO; +PROMETHAZINE PO; +PULMICORT0.5 MG/21 INH; +RISPERDAL0.5 MG PO; +SLOW FE142 MG PO; +TORSEMIDE20 MG PO; +VENTOLIN HFA INH8 GM INH; +VITAMIN B-121000 MC2 SUBLING
[2020-11-05 19:35] LABS: HEMOGLOBIN 10.9 gm/dL (14.0-18.0); RDW 18.4 % (10.5-14.5)
[2020-11-05 19:38] LABS: CALCIUM 9.1 mg/dL (8.5-10.1); CREATININE 1.3 mg/dL (0.7-1.3); HEMATOCRIT 36.1 % (42.0-52.0); MCH 25.1 pg (26.0-34.0); MCHC 30.3 g/dL (28.0-37.0); MCV 82.7 fL (80.0-100.0); PLATELET COUNT 441 thou/uL (150-400); RBC 4.37 mil/uL (4.50-6.00); WBC 11.5 thou/uL (4.0-11.0)
[2020-11-05 19:44] LABS: ALBUMIN 2.1 g/dL (3.4-5.0); TOTAL BILIRUBIN 0.4 mg/dL (0.2-1.0); TOTAL PROTEIN 7.8 g/dL (6.4-8.2)
[2020-11-05 20:05] LABS: ABSOLUTE NEUTROPHILS 7.5 thou/uL (1.4-8.2); ANISOCYTOSIS 1+; ATYPICAL LYMPHS 1 %
[2020-11-05 22:50] VITALS: BP 125/68; BP 134/74
[2020-11-06 01:00] VITALS: BP 120/75
--- NOTE | 2020-11-06 03:28 | NUR ---
ASSUMED PT CARE FROM THE ER AFTER MIDNIGHT. PT IS A&OX4 BUT FORGETFUL. PT IS GRUMPY BUT WILL WARM UP TO YOU. PT REFUSED TO LET ME TAKE PICTURE OF HIS WOUNDS. PT HAS A SACRAL AND LEG WOUND. PT IS ON 2 LITERS NASAL CANULA. PT HAS A LEFT UPPER ARM PIC. PT STATES THAT HE IS IN PAIN AT A 10, I ADMINISTERED HYDROCODONE. PT STATES THAT OXYCODONE WORKS BETTER FOR HIM. PT IS NPO. WILL CONTINUE TO MONITOR.
[2020-11-06 05:24] LABS: HEMATOCRIT 32.6 % (42.0-52.0); MCH 25.4 pg (26.0-34.0); MCHC 30.8 g/dL (28.0-37.0); MCV 82.4 fL (80.0-100.0); RBC 3.95 mil/uL (4.50-6.00); RDW 17.8 % (10.5-14.5); WBC 9.2 thou/uL (4.0-11.0)
[2020-11-06 05:39] LABS: CREATININE 1.2 mg/dL (0.7-1.3); POTASSIUM 3.4 mmol/L (3.5-5.1)
[2020-11-06 07:10] VITALS: BP 127/68
--- NOTE | 2020-11-06 09:01 | NUR ---
ASSUMED CARE AT 0700. PT IS A&O X3. PT DENIES PAIN, SOA, N/V. WOUND ON RIGHT FOOT. SURGERY WILL BE DONE TODAY FOR DEBRIDEMENT. PT IS STIFF ON RIGHT SHOULDER AND NECK. RULED OUT STROKE. PICC LINE IV IS INTACT AND SHOWS NO SIGNS OF REDNESS OR SWELLING. HEEL PROTECTORS BILATERAL. SOFT ABD. VSS. BSG WNL. DRY SKIN ON BILATERAL FOOT WITH PEELING. SCD HOSE ARE IN PLACE. CALL LIGHT WITHIN REACH. PT STILL REFUSES ME TO TAKE PICTURES OF WOUNDS OR ALLOW ME TO TURN HIM TO SEE HIS BUTTOCK FOR ANY WOUNDS. WILL CONTINUE TO MONITOR.
--- NOTE | 2020-11-06 13:51 | NUR ---
PT IS FROM [facility] FAXED CLINICAL UPDATE TO FACILITY RECEIVED CONFIRMATION AND LEFT MSG WITH LATESHA IN ADM.
--- NOTE | 2020-11-06 15:49 | NUR ---
ASSESSMENT: CM REVIEWED CHART AND SPOKE WITH PT. PT WAS ADMITTED FROM [facility] DUE TO LEFT FOOT WOUND. PT WAS TO HAVE DEBRIDEMENT TODAY BUT WAS RESCHEDULED FOR TOMORROW OR WEDNESDAY. PT NORMALLY USES A WHEELCHAIR AT THE FACILITY. CM SPOKE WITH LATESHA WHITE AT [facility] WHO REPORTS PT IS NORMALLY CONTRACTED ON HIS RIGHT SIDE AND REPORTS SHE IS UNSURE THE HX OF IT BUT KNOWS HE HAS A CECY IN HIS BACK. CM UPDATED ATTENDING. PLANS ARE FOR PT TO RETURN TO [facility] ONCE MEDICALLY STABLE. PT IS CURRENTLY ON IV ANBX. BLOCK PAVER TO SEND CLINICAL TO FACILITY. CM WILL CONTINUE TO FOLLOW TO ASSIST NEEDED.
--- NOTE | 2020-11-06 16:00 | HC ---
[facility] [place] [address] CONSULTATION Name: PALAK EWING QUAN Room #: 435-P [facility] IN M.R.#: [id number] Admission: 11/05/20 Attend Phys: Jin Ness MD Discharge: Date of : 58 Report #: [id number] THIS REPORT FOR: cc: FAM - No family physician/PCP FAM - No family physician/PCP Lam Bhatti MD ~ DATE OF SERVICE: 11/06/2020 INFECTIOUS DISEASE CONSULTATION ATTENDING PHYSICIAN: Dr. Ness. REASON FOR EVALUATION: Chronic left foot wound involving the right heel. HISTORY OF PRESENT ILLNESS: He was referred from ____ half-way facility, was felt to have possibility of osteomyelitis, had been on therapy with parenteral Zosyn since 10/22/2020. He is unable to give much in the way of history. He denies significant pain at this point. He is tentatively scheduled to undergo operative debridement on 11/07/2020. Initial imaging studies did not confirm any changes that would suggest osteomyelitis. He has had COVID testing, which was negative as well. Sed rate was 55, CRP of 49.7. He was empirically started on vancomycin. He is pending superficial culture. He denies fevers or chills. His appetite has been satisfactory. No pulmonary or gastrointestinal related complaints. He is maintained on supplemental oxygen at 2 liters per nasal cannula. He has been afebrile. ALLERGIES: NONSTEROIDALS AND TRAMADOL. CURRENT MEDICATIONS: Include famotidine, vancomycin, budesonide, insulin lispro, ipratropium, albuterol inhaler, hydrocodone, ondansetron. PAST MEDICAL HISTORY: Includes diabetes mellitus type 2, has been complicated by diffuse vasculopathy, has peripheral vascular disease, cardiomyopathy, congestive heart failure, chronic renal insufficiency, hyperlipidemia, anxiety, reflux, and depression. SOCIAL HISTORY: Disabled. Resides in a facility. FAMILY HISTORY: Noncontributory. REVIEW OF SYSTEMS: Otherwise, unremarkable. PHYSICAL EXAMINATION: GENERAL: Appears chronically ill and undernourished, is pleasant, cooperative, in hpnv-[id number]-ospprssa distress. [facility] [address] [place] [address] CONSULTATION Name: GILDARDOPALAK QUAN Room #: 435-P [facility] IN .R.#: [id number] Admission: 11/05/20 Attend Phys: Jin Ness MD Discharge: Date of : 58 Report #: [id number] VITAL SIGNS: Temperature 98.4, pulse 93, respirations 16, and blood pressure is 127/68. SKIN: Warm, dry, no rashes. HEENT: Normocephalic. Extraocular muscles intact. NECK: Supple. LUNGS: Diminished breath sounds. HEART: Regular, soft systolic murmur. ABDOMEN: Soft, nontender. EXTREMITIES: Bilateral lower extremities have changes consistent with significant dermopathy, likely diabetes related perhaps some venous stasis as well. Does have a dressing over the right distal lower extremity. GENITOURINARY: Deferred. RECTAL: Deferred. LABORATORY DATA: Electrolytes: Sodium 142, potassium 3.4, chloride 105, bicarbonate 28, anion gap of 9, BUN and creatinine 9 and 1.2. Estimated GFR of 75. CBC: White count of 9.2, H and H of 10.0 and 32.6, and platelets of 429. CT of the right foot showed previous chronic amputation of the distal first metatarsal and great toe, previous chronic amputation second toe, leading with the base of the proximal phalanx. No evidence currently of bony changes to suggest chronic osteomyelitis. Sed rate of 55. Liver functions, alkaline phosphatase elevated at 160, otherwise unremarkable. Albumin of 2.1, total protein 7.8. CRP of 49.7. Chest x-ray, normal size heart size and pulmonary vascularity, some density across the right chest, there is question of some atelectasis versus pneumonitis. ASSESSMENT AND PLAN: Distal right lower extremity chronic wound with concern about deeper infection. At this point, he is on vancomycin. It would be interesting to know if they had done previous cultures given the record that suggest he has been on Zosyn, I would favor more of gram-negative or perhaps polymicrobial etiology. We will await operative cultures. At this point, he is not overtly toxic. We will continue wound care as prescribed. We will follow procedurally and will add incentive spirometry and if he will be able to benefit from that. Try to optimize nutritional status. We will monitor expectantly. <ELECTRONICALLY SIGNED> By: Lam Bhatti MD 11/06/20 1600 1502 1547 Lam Bhatti MD /nt
[2020-11-06 16:05] VITALS: BP 139/63
[2020-11-06 19:21] VITALS: BP 117/71
--- NOTE | 2020-11-07 06:28 | NUR ---
ASSESSED AT START OF SHIFT. PT A&OX3 CONFUSED. C/O PAIN MANAGED BY PO PAIN MED. IV INTACT AND SL. RT FOOT WOUND SWABBED AND SENT TO LAB. PT YELLS OUT AND CAN BE ABUSIVE WITH WORDS. REPOSITIONED FOR COMFORT. WOUND PICTURES TAKEN. PT NPO AT MIDNIGHT FOR SX TOMORROW. FALL PREC IN PLACE WILL CONT TO MONITOR.
[2020-11-07 08:12] VITALS: BP 124/79
--- NOTE | 2020-11-07 09:45 | NUR ---
assumed care at 0700. pt is a&o 2-3. iv is on left fA and no signs of redness or swelling. waiting on vanco trough from the lab before i can hang the vanco. pt complains of pain and was given hydrocodone. bedrest. incontient. pt complains of right stiffness and right neck. 2 L of 02 and tolerating well. peripheral boot bilteral. wound on left foot. soft abd. pt will have debridement today hopefully. achs.
--- NOTE | 2020-11-07 11:47 | NUR ---
ON-GOING ASSESSMENT: CM REVIEWED CHART. PT IS GOING FOR DEBRIDEMENT TODAY. CM NOTIFIED LIASON AT [facility]. CM WILL CONTINUE TO FOLLOW TO ASSIST NEEED. PLANS TO RETURN TO [facility] ONCE STABLE.
[2020-11-07 12:34] LABS: CALCIUM 9.3 mg/dL (8.5-10.1); CREATININE 1.1 mg/dL (0.7-1.3); POTASSIUM 4.3 mmol/L (3.5-5.1)
[2020-11-07 15:42] VITALS: BP 136/82
[2020-11-07 18:54] VITALS: BP 136/78
--- NOTE | 2020-11-08 03:51 | NUR ---
11-07-20 CARE TRANSFERRED 1899. PT AAOX3, VSS, RR EVEN AND NONLABORED ON RA, LUNGS SOUNDS CLEAR, DIMINISHED, HT RR. PT REPORTS PAIN AND HAS BEEN MANAGED BY PRN MEDICATION. PT HAS BEEN NPO AFTER MIDNIGHT WITH POSSIBLE DEBRIMENT IN AM. PT LFARM IV CLEAN, DRY AND PATENT, PT HAS TOLERATED MEDICATION WELL.ZERO S/S OF ACUTE DISTRESS NOTED, PT WILL CONTINUE TO BE MONITOR PER PROTOCOL.
[2020-11-08 03:52] VITALS: BP 154/78
[2020-11-08 07:09] VITALS: BP 130/72
--- NOTE | 2020-11-08 10:39 | NUR ---
Assumed care of pt at 0700. Pt was taken to pre-op for surgery this am. Incontinent. A&o 2-3. Forgetful. 1L O2. Fall precautions in place. Will continue to monitor.
[2020-11-08 12:00] VITALS: BP 146/78
--- NOTE | 2020-11-08 13:33 | NUR ---
ON-GOING ASSESSMENT: CM REVIEWED CHART AND SPOKE WITH ATTENDING. PT IS HAVING DEBRIDEMENT TODAY. PT REMAINS ON IV ANBX AND AWAITING FURTHER RECS FROM ID. PT IS FROM [facility] AND WILL RETURN THERE ONCE MEDICALLY STABLE. CM FAXED UPDATED CLINICAL TO [facility] AND NOTIFIED LIASON. CM ALSO FAXED NEGATIVE COVID TEST TO FACILITY. CONTACT LATESHA WHITE AT [facility] ONCE STABLE FOR DISCHARGE AT [phone]. [facility]:[phone] CM ATTEMPTED TO CONTACT PTS SISTER DAVID AT [phone] BUT UNABLE TO REACH.
[2020-11-08 15:12] VITALS: BP 129/81
[2020-11-08 20:32] VITALS: BP 138/71
--- NOTE | 2020-11-09 03:34 | NUR ---
PT IS CONFUSED. SOMETIMES USES URINAL AND SOMETIMES IS INCONTINENT. PRAFO BOOTS IN PLACE. CONTINUES ON IV ANTIBIOTIC. AFEBRILE.
[2020-11-09 08:16] VITALS: BP 144/74
[2020-11-09 10:29] LABS: HEMATOCRIT 31.6 % (42.0-52.0); HEMOGLOBIN 9.6 gm/dL (14.0-18.0); MCH 25.3 pg (26.0-34.0); MCHC 30.4 g/dL (28.0-37.0); MCV 83.3 fL (80.0-100.0); RBC 3.79 mil/uL (4.50-6.00); RDW 18.3 % (10.5-14.5)
[2020-11-09 10:44] LABS: CALCIUM 9.3 mg/dL (8.5-10.1); CREATININE 1.1 mg/dL (0.7-1.3); MAGNESIUM 2.1 mg/dL (1.8-2.4); POTASSIUM 3.6 mmol/L (3.5-5.1)
[2020-11-09 16:41] VITALS: BP 139/86
--- NOTE | 2020-11-09 18:22 | NUR ---
ASSUMED CARE OF THE PATIENT AT 0715, PATIENT ALERT WITH CONFUSION, PATIENT YELLS OUT SURING THE SHIFT. PATIENT RESTING IN BED ALL SHIFT. NEW IV PLACED BY CATE/IV TEAM LEFT FOREARM, PATIENT RECEIVED BOTH IVPB'S, VANCO IVPB RESCHEDULED FOR 2300. PATIENT HAD ALL 3 MEALS. PADS CHANGED, BARRIER CREAM APPLIED, AND PATIENT REPOSITIONED. RIGHT FOOT WOUND CARE DONE BY DR MITCHELL. WILL CONTINUE TO MONITOR.
[2020-11-09 19:37] VITALS: BP 143/71
[2020-11-10 04:57] LABS: HEMATOCRIT 30.3 % (42.0-52.0); HEMOGLOBIN 9.2 gm/dL (14.0-18.0); MCH 25.3 pg (26.0-34.0); MCHC 30.4 g/dL (28.0-37.0); MCV 83.1 fL (80.0-100.0); RBC 3.65 mil/uL (4.50-6.00); RDW 18.7 % (10.5-14.5); WBC 9.2 thou/uL (4.0-11.0)
[2020-11-10 04:59] LABS: CALCIUM 8.8 mg/dL (8.5-10.1); MAGNESIUM 1.9 mg/dL (1.8-2.4); POTASSIUM 3.6 mmol/L (3.5-5.1)
--- NOTE | 2020-11-10 06:21 | NUR ---
PT ALERT TO SELF. CAN BE FORGETFUL AND CONFUSED. REFUSES CARE AND REQUIRES LOTS OF URGING AND ENCOURAGEMENT. REPOSITIONG PROVIDED. BARRIER CREAM APPLIED TO BUTTOCKS. USES URINAL.TAKES MEDS WHOLE AND DID NOT REFUSE.IV ABTS DCD. DRSG TO R FOOT INTACT. PRAFO BOOTS IN PLACE.
[2020-11-10 07:05] VITALS: BP 134/80
[2020-11-10 16:10] VITALS: BP 160/65
--- NOTE | 2020-11-10 18:48 | NUR ---
PT ASSESSED AT START OF SHIFT. VERY RESISTENT TO STAFF DOING CARE. REFUSING TO TURN ALL SHIFT. WOULD NOT ALLOW DSNG CHANGE. AT END OF SHIFT. ALLOWED [employer] ELECT[employer]OD[employer] SUPERVISOR'S TO CHANGE HIS SHEETS. DID TAKE HIS MEDICINE. REQUESTED PAIN MED AND TOOK IT.
[2020-11-10 19:29] VITALS: BP 132/83
--- NOTE | 2020-11-11 05:41 | NUR ---
Assumed care of patient this pm shift. Patient calm and cooperative. Alert and oriented x4. Takes medications whole with thin fluids. Falls precautions in place. Assessment shows no signs of acute distress. Patient was awake off and on through the night and requested food on several occasions. Left forearm saline lock in place. Patient stated that he was having pain and norco was given. We will continue to monitor per hospital policy.
[2020-11-11 05:56] VITALS: BP 141/79
[2020-11-11 07:30] VITALS: BP 149/80
[2020-11-11] MEDS ORDERED: RIFAMPIN 300 M300 MG PO (10:26)
[2020-11-11] MEDS ORDERED: MINOCYCLINE 5050 M1 PO (10:26)
[2020-11-11] MEDS ORDERED: HUMALOG100 UNIT/1 SUBQ (10:30)
--- NOTE | 2020-11-11 10:36 | NUR ---
ASSUMED CARE AT 0700. PT IS A&O X2. PT COMPLAINS OF PAIN AND WAS GIVEN HYDROCODONE FOR PAIN. PT IS TOLERATING WELL. IV IS INTACT AND SHOWS NO SIGNS OF REDNESS OR SWELLING. WOUND CARE WAS APPLIED TO RIGHT FOOT. NS--XEOFORM AND ABD DRESSING WITH SABINO WRAP. PT TOLERATE WELL. FALL PRECAUTION. CALL LIGHT WITHIN REACH. BSG WNL. VSS. WILL CONTINUE TO MONITOR.
--- NOTE | 2020-11-11 10:55 | NUR ---
ON-GOING ASSESSMENT: CM REVIEWED CHART AND SPOKE WITH PT AND HIS SISTER DAVID AND THEY ARE AGREEABLE WITH DISCHARGE TODAY BACK TO [facility]. CM NOTIFIED LIASON AT [facility] OF DISCHARGE AND FAXED D/C ORDERS AND CONFIRMED THEY RECEIVED THEM ALONG WITH NEGATIVE COVID TEST. CHART COPY WAS ORDERED AND PHOTOENGRAVER APPRENTICE WAS NOTIFIED. BEDSIDE RN HAS THE NUMBER FOR REPORT. LIASON AT [facility] IS ARRANGING TRANSPORTATION AND WILL CONTACT CM WITH THE TIME. CM WILL CONTINUE TO FOLLOW TO ASSIST NEDED.
--- NOTE | 2020-11-11 17:08 | PATH ---
[facility] [address] [place] [address] PATHOLOGY RPT PROCEDURE Name: ELMER EWING QUAN Room #: 435-P [facility] IN M.R.#: [id number] Admission: 11/05/20 Date of : 58 Discharge: 11/11/20 Report #: [id number] Path Case #: [id number] [facility] Accession Number: [id number] . 01 Material submitted: . heel - RIGHT HEEL DECUBITUS ULCER TISSUE. Modifiers: right . 01 Clinical history: . DEBRIDEMENT DECUBITUS ULCER OSTEOMYELITIS CHRONIC RESPIRATORY FAILURE UNSP WITH HYPOXIA OR HYPERCAPNIA . 02 Diagnosis: Right heel ulcer tissue, debridement: - Gangrenous necrosis and fibrinoid degeneration along with marked acute inflammation, consistent with wound tissue. (IUV:varun; 11/11/2020) QMS 11/11/2020 1542 Local . 02 Electronically signed: . Katrin Kelly MD, Pathologist NPI- [id number] . 01 Gross description: . The specimen is received in formalin, labeled "Elmer Ewing, right heel decubitus ulcer tissue" and consists of necrotic dark valdez/black tissue measuring 5.4 x 4.2 x 0.5 cm. Solutions Analyst tissue is submitted in A1. (SDY; 11/10/2020) SYU/SYU 11/10/2020 1057 Local . 02 Pathologist provided ICD-10: I96, L98.9 . 02 CPT . 607744 Specimen Comment: A courtesy copy of this report has been sent to [phone] Specimen Comment: Report sent to Performed at: [address], [place] [id number] MD Pawan Alamo MD Phone: [phone] Performed at: [address] [id number] MD Katrin Kelly MD Phone: [phone]
== END 2020-11-11 12:13 | DRG 622 ==
LOC: ER 16:52 → EROBS 20:57 → 4S 20:57 → EROBS 20:57 → 4S 23:46
PROVIDERS: Internal Medicine; Nurse Practitioner; Nurse Practitioner Family; ADMIT Hospitalist; ATTEND Hospitalist
PROC: 0JBQ0ZZ Excision of Right Foot Subcutaneous Tissue and Fascia, Open Approach (ICD-10-PCS; principal; 2020-11-08)
DX: E11.69 Type 2 diabetes mellitus with other specified complication (principal); L89.613 Pressure ulcer of right heel, stage 3; E43 Unspecified severe protein-calorie malnutrition; J96.10 Chronic respiratory failure, unspecified whether with hypoxia or hypercapnia; M86.8X7 Other osteomyelitis, ankle and foot; I13.0 Hypertensive heart and chronic kidney disease with heart failure and stage 1 through stage 4 chronic kidney disease, or unspecified chronic kidney disease; J96.11 Chronic respiratory failure with hypoxia; E11.51 Type 2 diabetes mellitus with diabetic peripheral angiopathy without gangrene; E78.5 Hyperlipidemia, unspecified; K21.9 Gastro-esophageal reflux disease without esophagitis; G89.29 Other chronic pain; S91.301A Unspecified open wound, right foot, initial encounter; N18.30 Chronic kidney disease, stage 3 unspecified; E11.22 Type 2 diabetes mellitus with diabetic chronic kidney disease; F41.9 Anxiety disorder, unspecified; J44.9 Chronic obstructive pulmonary disease, unspecified; X58.XXXA Exposure to other specified factors, initial encounter; I25.10 Atherosclerotic heart disease of native coronary artery without angina pectoris; M54.9 Dorsalgia, unspecified; Z20.822 Contact with and (suspected) exposure to COVID-19; Y93.89 Activity, other specified; Y92.89 Other specified places as the place of occurrence of the external cause; Y99.8 Other external cause status; Z79.4 Long term (current) use of insulin; Z79.899 Other long term (current) drug therapy; Z88.8 Allergy status to other drugs, medicaments and biological substances; Z68.25 Body mass index [BMI] 25.0-25.9, adult
CPT/HCPCS: 10195; 50010; 50101; 50386; 57091; 57119; 57120; 57192; 62110; 62900; 70005

== ENCOUNTER 2021-01-06 04:35 | Inpatient (IN) | payer OTHER ==
[2021-01-06] VITALS (7 sets, daily range): BP systolic 118–137; BP diastolic 61–91
[~2021-01-06] VITALS: Ht 185.4 cm; Wt 111.7 kg
[~2021-01-06 04:35] MED LIST changes: +MINOCYCLINE 5050 M1 PO; +RIFAMPIN 300 M300 MG PO
[2021-01-06 04:50] LABS: URINE BILIRUBIN NEGATIVE (Negative); URINE BLOOD 1+ (Negative); URINE CLARITY SL CLOUDY; URINE COLOR YELLOW; URINE GLUCOSE-RANDOM* NEGATIVE (Negative); URINE KETONES 1+ (Negative); URINE NITRITE-REFLEX NEGATIVE (Negative); URINE PROTEIN (DIPSTICK) 2+ (Negative); URINE SPECIFIC GRAVITY >= 1.030 (1.005-1.035); URINE UROBILINOGEN 0.2 E.U./dl (0.2-1.0)
[2021-01-06 04:51] LABS: URINE LEUKOCYTES-REFLEX 2+ (Negative)
[2021-01-06] MEDS ORDERED: TYLENOL325 M1 PO (04:59)
[2021-01-06 05:02] LABS: BACTERIA-REFLEX 1-9 Few /HPF (None Seen); FINE GRANULAR CASTS 0-3 Few /LPF (None Seen); HYALINE CASTS 4-10 Moderate /LPF (None Seen); MUCUS 0-3 Light strn/LPF (None Seen); SQUAMOUS 4-10 Moderate /LPF (0-3); URINE RBC 0-2 Rare /HPF (0-2); URINE WBC-REFLEX >25 Many /HPF (0-5)
[2021-01-06 05:03] LABS: CRYSTALS None Seen /LPF (None Seen); YEAST-REFLEX Present (None Seen)
[2021-01-06] MEDS ORDERED: [UNRECOGNIZED DRUG - OTHER] PO (05:09)
[2021-01-06] MEDS ORDERED: CARVEDILOL12.5 MG PO (05:10)
[2021-01-06 05:13] LABS: BASOPHILS 1.2 % (0.0-2.0); EOSINOPHILS 2.2 % (0.0-3.0); HEMATOCRIT 33.4 % (42.0-52.0); HEMOGLOBIN 10.5 gm/dL (14.0-18.0); LYMPHOCYTES 26.9 % (24.0-44.0); MCH 26.1 pg (26.0-34.0); MCHC 31.3 g/dL (28.0-37.0); MCV 83.2 fL (80.0-100.0); MONOCYTES 10.2 % (1.0-8.0); PLATELET COUNT 486 thou/uL (150-400); POLYS 59.5 % (36.0-66.0); RBC 4.01 mil/uL (4.50-6.00); RDW 15.3 % (10.5-14.5); WBC 8.4 thou/uL (4.0-11.0)
[2021-01-06] MEDS ORDERED: DETEMIR INSULIN SUBQ (05:13)
[2021-01-06] MEDS ORDERED: MINERIN CREME454 G1 TOP ×2 (05:19→12:45)
[2021-01-06] MEDS ORDERED: OXYCODONE PO (05:35)
[2021-01-06 05:36] LABS: CALCIUM 8.2 mg/dL (8.5-10.1); CREATININE 1.2 mg/dL (0.7-1.3); POTASSIUM 3.8 mmol/L (3.5-5.1)
[2021-01-06] MEDS ORDERED: SANTYL OINTMENT30 G1 TOP (05:40)
[2021-01-06 05:41] LABS: TROPONIN-I 8.26 ng/mL (<0.06)
[2021-01-06] MEDS ORDERED: VENTOLIN PO (05:46)
[2021-01-06] MEDS ORDERED: VITAMIN B-121000 MC2 SUBLING (05:47)
[2021-01-06] MEDS ORDERED: ALPRAZOLAM PO (06:16)
[2021-01-06 07:36] LABS: INR 1.1; PROTIME 11.9 Seconds (9.3-11.4)
--- NOTE | 2021-01-06 07:39 | EKG ---
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: nenita dorsey : 1960 Requested By: Sheridan Buneo Order Number: [id number] MD: Anoop Ng Measurements Intervals [place] Rate: 94 P: 52 CA: 164 QRS: 259 QRSD: 118 T: 7 QT: 420 QTc: 526 Interpretive Statements Sinus rhythm Left anterior fascicular block Low voltage, extremity leads Borderline ST elevation, lateral leads Compared to ECG 09/06/2019 11:15:25 Left anterior fascicular block now present Low QRS voltage now present ST (T wave) deviation now present Intraventricular conduction delay no longer present Electronically Signed On 01-06-2021 7:39:16 ICE RINK ATTENDANT by Anoop Ng [email or web address] <ELECTRONICALLY SIGNED> By: Anoop Ng MD, [facility] 01/06/21 0739 0550 0550 Anoop Ng MD, [facility] /EPI
--- NOTE | 2021-01-06 10:31 | NUR ---
Patient admits from [facility] with AMS. Patient is ltc resident at [facility] since 2018. Patient does not have a DPOA per facility that they are aware. Patient has been able to make decisions. [facility] reports patient decline when COVID positive in the fall. Dr Derik sullivan for [facility]. Attemted to call sister but no answer and requested "access code" at end to continuous rings. Casemgt following
--- NOTE | 2021-01-06 16:46 | NUR ---
PT. ARRIVED AT THE FLOOR AFTER SHIFT; PT. IRRITABLE; UPSET; ST. "I DO WANT TO BE IN THE BASEMENT"; REMAINED HE IS IN THE HOSPITAL; AGRESSIVE; ALERT TO PERSON; C/O PAIN OVER LLE AND L. KNEE; NO PRN PAIN MEDICATIONS; PHYSICIAN NOTIFIED; NO TEXT ON KRYPTO TEXT; PER CARDIO D/C IV FLUIDS; OK FOR PT. 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 "HE DOES NOT HAVE PAIN";"I TALKED TO HIM AND I TOLD HIM TO CALM DOWN"; "I AM PUTTING ORDERS"; ORDERS ON PLACED; THROUGH THE DAY PT. C/O PAIN DURING MOVEMENT; NO PRN PAIN MEDICATIONS ON PLACED; PHYSICIAN AWARE; PICTURES TAKEN; ZGARD APPLIED TO BUTTOCKS; INCONTINENT; THROUGH THE DAY PT. AGRESSIVE; CONFUSED; VERBAL ABUSIVE TOWAR STAFF; ASSESSMENT CHARGED; FOLLOWING POC; WILL PASS ON REPORT;
[2021-01-07 04:58] LABS: HEMATOCRIT 35.3 % (42.0-52.0); MCH 25.8 pg (26.0-34.0); MCHC 31.2 g/dL (28.0-37.0); MCV 82.7 fL (80.0-100.0); RBC 4.27 mil/uL (4.50-6.00); RDW 15.8 % (10.5-14.5)
[2021-01-07 05:11] LABS: ALBUMIN 2.4 g/dL (3.4-5.0); CALCIUM 8.9 mg/dL (8.5-10.1); CREATININE 1.3 mg/dL (0.7-1.3); POTASSIUM 3.8 mmol/L (3.5-5.1); TOTAL BILIRUBIN 0.8 mg/dL (0.2-1.0); TOTAL PROTEIN 7.8 g/dL (6.4-8.2)
[2021-01-07 05:30] VITALS: BP 130/72
[2021-01-07 08:00] VITALS: BP 113/55
[2021-01-07 12:00] VITALS: BP 111/70
--- NOTE | 2021-01-07 15:11 | NUR ---
Spoke with patients sister Karon. Updated patient at [facility] and likely transition to [facility] tomorrow with plan to return to [facility] upon return. Gave sister Karon number for unit to check on patient.
--- NOTE | 2021-01-07 15:41 | NUR ---
FAXED CLINICAL UPDATES TO [facility]. WILL CONFIRM WITH LATESHA/LIAISON THAT THEY RECEIVED. [facility] P [phone]; FAX [phone]
[2021-01-07 16:00] VITALS: BP 120/68
[2021-01-07 19:57] VITALS: BP 110/71
--- NOTE | 2021-01-07 20:10 | NUR ---
RECEIVED PT'S CARE AROUND 0735; PT. ON BED; ALERT; TALKING TO HIMSELF; PER NIGHT NURSE PT. ABLE TO VOID TWICE; MONITOR BLADDER BLADER SCANNER SHOWED 520 ML; PHYSICIAN NOTIFIED; NO ANSWER BACK ON KRYTO TEXT; PT. C/O PAIN OVER BLE; REQUESTED TYLENOL; PHYSICIAN NOTIFIED OVER KRYPTO TEXT; NO NEW ORDERS; NOTIFIED DURING ROUNDING; ASKED IF PT. ON FLOMAX; ST. "I DO NOT WANT TO PUT A ALATORRE"; NO PRN PAIN MEDICATION; AM MEDICATION GIVEN; ALERT TO PERSON; C/O PAIN DURING TURNINGS; TACTILE STIMULATION OVER BLE; NOTICED DECREASED VISION; REFUSED TO BE HELP DURING MEALS; WOUND CARE PERFORMED; TURNED FROM SIDE TO SIDE; ASSESSMENT CHARGED; FOLLOWING POC; PASSED ON REPORT; SR ON THE MONITOR;
[2021-01-08 03:45] VITALS: BP 116/67
[2021-01-08 05:37] VITALS: BP 102/66
[2021-01-08 07:38] VITALS: BP 104/55
[2021-01-08] MEDS ORDERED: CLOPIDOGREL75 MG PO (08:03)
[2021-01-08] MEDS ORDERED: SEROQUEL 25 MG25 M1 PO (08:03)
[2021-01-08] MEDS ORDERED: LANTUS SUBQ (08:04)
--- NOTE | 2021-01-08 08:51 | NUR ---
Note Given: Y Facility List Provided:Y Facility Malika: None chosen at this time Ayla Rice NP discussed BPCI with this pt 01/07/2021
--- NOTE | 2021-01-08 10:25 | NUR ---
[facility]DC FACILTY PAMPLET GIVEN, WITH BPCI LETTER
[2021-01-08 11:27] VITALS: BP 101/50
--- NOTE | 2021-01-08 15:12 | NUR ---
[facility]. Notified sister yesterday. Notfied [facility] today.
[2021-01-08 15:46] VITALS: BP 94/62
--- NOTE | 2021-01-08 16:00 | NUR ---
attempted to call sister unable to reach. She was aware yesterday of dc to [facility]
--- NOTE | 2021-01-08 16:08 | NUR ---
Spoke with dtr Evelyn at bedside. Discussed hospice services. Appears she wants Hospice for her father. She has spoken to patients brother and xwife, her mother. She wants to cont to think of DNR. She will be at hospital tomorrow. Discussed hospice services at [facility] and extra care to receive from hospice. Dtr [facility]. F[facility]ed referral to [facility]. Requested early am eval for hospice house. Hospice in process of attempting to arrange. They will call casemgt with time. [facility] to call dtr post eval. Casemgt to f/u with dtr in am.
--- NOTE | 2021-01-08 16:28 | NUR ---
[facility] RECEIVED CONFIRMATION AND LEFT MSG WITH LATESHA IN ADM.
--- NOTE | 2021-01-08 21:54 | NUR ---
CALLED UP TO PT NEW ROOM IN 528. EXPLAINED THAT THIS RN DID APPLY THE Z GAURD TO BOTTOCKS BUT I DID NOT GET A CHANCE TO DRESS PT HEEL WOUNDS.
--- NOTE | 2021-01-09 13:00 | HC ---
[facility] [place] [address] CONSULTATION Name: PALAK EWING QUAN Room #: 204-P [facility] IN M.R.#: [id number] Admission: 01/06/21 Attend Phys: Keli Evans Discharge: 01/08/21 Date of : 58 Report #: [id number] THIS REPORT FOR: cc: Svetlana Valencia,Svetlana Huang,Mark Heck MD ~ DATE OF SERVICE: 01/06/2021 CHIEF COMPLAINT: Gluteal pressure ulcerations and right lower extremity ulcerations. HISTORY OF PRESENT ILLNESS: This is a 60-year-old male with a history of coronary artery disease, congestive heart failure and diabetes, who was admitted from [facility]. He presented with altered mental status, was noted to have multiple ulcerations as detailed above and I have been asked to see him in this regard. The patient does not provide a lot of information about himself at this time. ALLERGIES: INCLUDE NONSTEROIDALS AND TRAMADOL. PAST MEDICAL HISTORY: Positive for history of type 2 diabetes mellitus, congestive heart failure, peripheral vascular disease, hypertension, chronic kidney disease, hyperlipidemia, anxiety, GERD, osteomyelitis, chronic back pain. SOCIAL HISTORY: Negative for alcohol or drug use. Currently lives at the [facility]. MEDICATIONS: Include Colace, Coreg, calcium carbonate, Flonase, hydroxyzine, milk of magnesia, Santyl, insulin, oxycodone, Ventolin, cyanocobalamin, ferrous sulfate, Humira, lactulose, risperidone, simethicone. FAMILY HISTORY: Noncontributory. REVIEW OF SYSTEMS: GENERAL: The patient is limited in his ability to provide much more information. CONSTITUTIONAL: The patient denies any fever or chills. PULMONARY: The patient denies cough or shortness of breath. GASTROINTESTINAL: The patient denies nausea, vomiting, diarrhea or abdominal pain. He is aware of ulcerations on his leg. Other systems are unobtainable and/or contained in the history of present illness. PHYSICAL EXAMINATION: VITAL SIGNS: At this time include temperature 37.2, pulse 96, respiratory rate [facility] [address] [place] [address] CONSULTATION Name: GILDARDOPALAK QUAN Room #: 204-P [facility] IN M.R.#: [id number] Admission: 01/06/21 Attend Phys: Keli Evans Discharge: 01/08/21 Date of : 58 Report #: [id number], blood pressure 119/91. GENERAL: This is a chronically ill-appearing male patient who appears to be in minimal distress. HEENT: Head normocephalic. Nose and throat are clear. NECK: Supple. LUNGS: Clear. HEART: Regular, without murmur. ABDOMEN: Slightly distended, nontender. EXTREMITIES: Examination of the gluteal sacral region demonstrates shallow stage 3 gluteal pressure ulcers seen both bilaterally. Lower extremities demonstrate stage 3 pressure ulcer on the right heel and the right Achilles region, both are relatively clean with some granulation tissue. He has vascular ulcer of the tip to the left first MTP region with a dry stable eschar. CLINICAL IMPRESSION: 1. Diabetes mellitus. 2. Congestive heart failure. 3. Hyperlipidemia. RECOMMENDATIONS: At this point in time, we will recommend a low air loss surface with q.2 hour turning and positioning. Recommend barrier cream b.i.d. and p.r.n. to the gluteal ulcerations. Recommend Xeroform, ABD and Kerlix to the ulcers on the right Achilles region and right heel. We will recommend Betadine to the arterial ulcer and eschar to the left first MTP region. Arterial Dopplers are reviewed and were performed in November. We will recommend PRAFO boots for pressure prophylaxis and ongoing nutritional support. I appreciate being asked to see him in consultation. <ELECTRONICALLY SIGNED> By: Mark Fuentes MD 01/09/21 1300 1147 1211 Mark Fuentes MD /nt
== END 2021-01-08 16:21 | DRG 280 ==
LOC: ER 04:35 → 2N 06:32 → EROBS 06:32 → 2N 07:56
PROVIDERS: Emergency Medicine; Nurse Practitioner; ADMIT Hospitalist; ATTEND Hospitalist
DX: I21.4 Non-ST elevation (NSTEMI) myocardial infarction (principal); L89.613 Pressure ulcer of right heel, stage 3; L89.893 Pressure ulcer of other site, stage 3; N39.0 Urinary tract infection, site not specified; I42.9 Cardiomyopathy, unspecified; I13.0 Hypertensive heart and chronic kidney disease with heart failure and stage 1 through stage 4 chronic kidney disease, or unspecified chronic kidney disease; I50.40 Unspecified combined systolic (congestive) and diastolic (congestive) heart failure; R44.3 Hallucinations, unspecified; Z20.822 Contact with and (suspected) exposure to COVID-19; E11.51 Type 2 diabetes mellitus with diabetic peripheral angiopathy without gangrene; E11.22 Type 2 diabetes mellitus with diabetic chronic kidney disease; N18.9 Chronic kidney disease, unspecified; E78.5 Hyperlipidemia, unspecified; F41.9 Anxiety disorder, unspecified; K21.9 Gastro-esophageal reflux disease without esophagitis; G89.29 Other chronic pain; M54.9 Dorsalgia, unspecified; J44.9 Chronic obstructive pulmonary disease, unspecified; R53.81 Other malaise; L97.529 Non-pressure chronic ulcer of other part of left foot with unspecified severity; Z88.8 Allergy status to other drugs, medicaments and biological substances; Z89.411 Acquired absence of right great toe; Z86.718 Personal history of other venous thrombosis and embolism; Z79.899 Other long term (current) drug therapy
CPT/HCPCS: 10081

== ENCOUNTER 2021-01-08 16:24 | Inpatient (IN) | payer OTHER ==
[~2021-01-08] VITALS: Ht 182.9 cm; Wt 85.6 kg
[~2021-01-08 16:24] MED LIST changes: +ALPRAZOLAM PO; +CLOPIDOGREL75 MG PO; +DETEMIR INSULIN SUBQ; +MINERIN CREME454 G1 TOP; +OXYCODONE PO; +SANTYL OINTMENT30 G1 TOP; +SEROQUEL 25 MG25 M1 PO; +TYLENOL325 M1 PO; +VENTOLIN PO; +[UNRECOGNIZED DRUG - OTHER] PO
[2021-01-08 16:45] VITALS: BP 108/63
--- NOTE | 2021-01-08 19:16 | NUR ---
1604 PATIENT ADMITTED TO [facility] ROOM 528B. PATIENT ARRIVED VIA BED ACCOPANIED BY RN AND JOINER. PATIENT TRANSFERED TO BED X4 ASSIST. PATIENT CALM AND COOPERATIVE AT THIS TIME. PATIENT ANSWERS QUESTIONS WITHOUT DIFFICULTY. VS STABLE. LS CLEAR BS ACTIVE. PATIENT HAS MULTIPLE SKIN WOUNDS TO BILATERAL FEET. PATIENT YELLS IN PAIN WHEN FEET ARE MOVED. GAUZE BANDAGES NOTED TO FEET WRAPPED AND PATIENT REFUSE REMOVAL AT THAT TIME. PICTURES TAKEN BY RN. FEET AND LEGS ARE DRY AND SCALLY. PATIENT REQUEST PAIN MED STATING "I HURT MAINLY WHEN MOVED". PATIENT TURNED AND CLEANED UP, MED SOFT BM BROWN NOTED. OPEN AREA TO RIGHT BUTTOCKS. CLEANSER USED TO CLEAN BOTTOM, MARIANA CARE COMPLETED. ZGARD APPLIED. PATIENT GOWN CHANGED AND PATIENT REPOSITIONED. PATIENT C/O BEING HUNGRY, TRAY ORDERED. PATIENT REQUESTING OXYCODONE FOR PAIN, TYLENOL GIVEN PER DR ORDER FOR PAIN. HEEL PROTECTORS IN PLACE. REPORT GIVEN TO ONCOMING SHIFT
[2021-01-08 19:50] VITALS: BP 102/59
--- NOTE | 2021-01-09 05:52 | NUR ---
01-08-21 CARE TRANSFERRED 1899. RECEIVED REPORT FROM CODER THAT PT REFUSED BLD GLUCOSE. PT AAOX2, VSS, RR EVEN AND NONLABORED ON RA, PT REPORTS PAIN AND PAIN MANAGED WITH MEDICATION. BLD GLUCOSE TAKEN 95. PT ATE 100% HS SNACK ICE CREAM ALSO PEANUT BUTTER AND G.CRACKERS PROVIDED. PT DENIES SI/HI. PT HAS BEEN REPOSITION PER HCP ORDERS WHILE AWAKE. ZERO S/S OF ACUTE DISTRESS NOTED, PT WILL CONTINUE TO BE MONITOR PER [facility] PROTOCOL.
[2021-01-09 08:06] VITALS: BP 102/63
--- NOTE | 2021-01-09 11:38 | NUR ---
SW received a call from [place] with [facility] of stating that he is a pt there and tested positve for covid approx. 3 months ago and that was the beginning of his adverse behaviors. SW team will continue to follow pt during his stay on this unit.
--- NOTE | 2021-01-09 13:47 | NUR ---
This nurse was on unit during lunch. Patient reclined in gerichair. Attempted to re-position patient in felipa chair to an upright position to eat. Required total assist x2 due to patient reporting back pain. Patient calm, pleasant and cooperative until re-positioned. Patient became verbally aggressive using vulgar language during re-positioning. Yelling "don't fing touch me, ever again!". Reporting back pain rated 10/10. Dr. Evans notified. Dr. Evans stated that patient is med seeking and always asking for Oxycodone. During chart review, appears that patient received Oxycodone at previous placement before admission into the hospital. Patient has been laying in bed for the last couple days and has been sitting in upright position in felipa chair this shift due to required participation in therapeutic mileau. Dr. Evans deferred medication management to Dr. Hennessy for pain. This nurse spoke with Dr. Hennessy regarding Dr. Evans's request.
--- NOTE | 2021-01-09 19:44 | NUR ---
0700 ASSUMED CARE OF PATIENT, PATIENT IN BED SLEEPING AT THAT TIME. PATIENT AWAKE FOR BREAKFAST, CALM AND COOPERATIVE. C/O PAIN RATING 9 IN AM. TYLENOL 1000 MG PO GIVEN WHOLE WITH OTHER MEDS. PATIENT REQUESTING TO LEAVE IF NO OTHER PAIN MEDS WILL BE GIVEN. PATIENT CLEANED UP AFTER BM WOUND TO RIGHT BOTTOM WEAPING BLOOD. ZGARD APPLED AND DRESSED WITH 3X3 GAUZE. HEEL PROTECTORS IN PLACE. PATIENT UP TO MAHENDRA CHAIR WITH ASSIST X4 AND OUT TO DAYROOM. PATIENT GIVEN OXYCODONE FOR PAIN, PAIN DECREASED TO A 6-7. FLUIDS ENCOURAGED. PATIENT REPOSITIONED Q 2 HRS.
[2021-01-09 20:07] VITALS: BP 122/83
[2021-01-10 03:08] VITALS: BP 122/83
[2021-01-10 09:00] VITALS: BP 107/62
--- NOTE | 2021-01-10 09:18 | NUR ---
PT IN BED DURING BREAKFAST TIME. PT GETS UP VIA CHUCK LIFT. PT STATED HE HAS HAD ARTHRITIS TO BACK SINCE HE WAS 16 YR OLD. PT STATED IF HE WAS IN [place] THEN HE COULD BE TREATED BETTER BECAUSE OF THEM KNOWING THE [facility], HE STATED THEY HAVE WITCH THERE. PT TOOK MEDS WITHOUT ANY ISSUES. PT COMPLAINING OF PAIN TO FEET AND WANTING PAIN MEDICATION.
--- NOTE | 2021-01-10 09:33 | NUR ---
ADM OXYCODONE 5MG PO FOR PAIN TO LE OF 7 ON 1-10 SCALE.
[2021-01-10 10:25] VITALS: BP 108/71
--- NOTE | 2021-01-10 13:06 | NUR ---
ADM ZOFRAN 4MG PO FOR C/O NAUSEA. PT STATED HE WOULD LIKE SOMETHING FOR HIS STOMACH. PT IN DINING ROOM NOW VIA CHUCK LIFT TO MAHENDRA-CHAIR.
--- NOTE | 2021-01-10 14:25 | NUR ---
APPLIED LOTION TO LEGS BILATERALY. APPLIED DRESSING TO RT HEEL AND ALSO BETADINE TO TOP OF TOES BILATERALY.
--- NOTE | 2021-01-10 15:26 | HC ---
[facility] [place] [address] CONSULTATION Name: PALAK EWING QUAN Room #: 528B-A ADM IN M.R.#: [id number] Admission: 01/08/21 Attend Phys: Raphael Hennessy, Discharge: Date of : 58 Report #: [id number] THIS REPORT FOR: cc: Svetlana Valencia,Lam Masterson MD ~ DATE OF SERVICE: 01/10/2021 INFECTIOUS DISEASE CONSULTATION ATTENDING PHYSICIAN: Dr. Hennessy. REASON FOR EVALUATION: Right heel decubitus ulcer as well as right ischial pressure related ulcer. Recommendation for antibiotic therapy. HISTORY OF SUBJECTIVE: Chart reviewed, patient examined. This is a 60-year-old gentleman with extensive medical history given his age. He is generally nonambulatory due to profound weakness, has diabetes mellitus complicated by vasculopathy as well as cardiomyopathy, who has longstanding ulcers on the right heel. 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 He has been hospitalized twice since November, initially was evaluated and felt to have a necrotic wound associated with the heel, underwent operative debridement, had polymicrobial growth at that point including MRSA and Acinetobacter baumannii, the latter which was highly resistant, had been discharged on minocycline and rifampin. He was readmitted earlier this month with worsening encephalopathy, was found to have a myocardial infarct, was stabilized and transferred to the Geropsych unit for delirium. He subsequently improved. Additional studies include urinalysis, which did show marked pyuria; however, urine culture with low numbers of growth of multiple-resistant Acinetobacter, only intermediate in vitro to minocycline. He does admit to pain associated with the sites. Denies significant pulmonary or gastrointestinal related complaints. He generally has been eating fairly well. ALLERGIES: NONSTEROIDALS AND TRAMADOL. CURRENT MEDICATIONS: Include oxycodone, gabapentin, insulin lispro sliding scale, cyanocobalamin, multivitamin, atorvastatin, clopidogrel, montelukast, quetiapine, carvedilol, and rifampin. PAST MEDICAL HISTORY: As described above, diabetes mellitus type 2 complicated by peripheral vasculopathy, coronary artery disease with cardiomyopathy, history of congestive heart failure, chronic renal insufficiency, hypertension, hyperlipidemia, anxiety, reflux, delirium. [address] [address] CONSULTATION Name: GILDARDOPALAK QUAN Room #: 528B-A ADM IN M.R.#: [id number] Admission: 01/08/21 Attend Phys: Raphael Hennessy DO Discharge: Date of : 58 Report #: [id number] SOCIAL HISTORY: Available in chart. REVIEW OF SYSTEMS: Otherwise, unremarkable 10-point review of systems. PHYSICAL EXAMINATION: GENERAL: Alert and cooperative. He is not overtly confused at this point, appears somewhat chronically ill and undernourished, is in moderate distress, especially with efforts to examine. VITAL SIGNS: Temperature 97.3, pulse 84, respirations 18, blood pressure 108/71. SKIN: Warm, dry, no rashes. HEENT: Normocephalic. Extraocular muscles intact. NECK: Supple. LUNGS: Breathing is nonlabored. ABDOMEN: Soft. Right ischial decubitus site stage 2 ulcer. There is mild degree of surface inflammation noted. It is tender to palpation. There is no exposed hard tissue, granulation appears to be adequate. Also examination of the right heel, previous great toe amputation as well as fifth toe does have a persistent ulcer on the posterior heel, [id number]-[id number]-[id number] degree of inflammation, is quite tender as well. There is no exposed hard tissue there either including specifically calcaneus and/or the Achilles that I can appreciate. GENITOURINARY AND RECTAL: Deferred. LABORATORY DATA: Coronavirus testing was negative. Urine culture described above. Most recent lab from 01/07/2021, otherwise pretty unremarkable. Albumin 2.4, alkaline phosphatase was elevated at 174, glucose of 107. CBC: White count of 8.0, H and H 11.0 and 35.3, platelets of 495. ASSESSMENT AND PLAN: Right heel decubitus ulceration, right ischial decubitus ulceration as well. At this point, they do not appear evidently infected. I do not think there is any particular deep exposed tissue. I think it is reasonable to discontinue the rifampin, presuming he has been on it for a number of weeks. In the event that he would worsen, I would likely try to reculture sites and certainly if the wounds continue not to heal or breakdown, I would consider additional debridements as well. In the event of worsening encephalopathy, we will repeat the urinalysis for possible culture. Try to optimize his nutritional status. Monitor expectantly. <ELECTRONICALLY SIGNED> By: Lam Bhatti MD 01/10/21 1526 1240 1259 Lam Bhatti MD /nt
--- NOTE | 2021-01-10 15:46 | NUR ---
VANESA contacted Haven Roberts at [facility]. SW provided and update on the Pt and informed about d/c. Haven stated homey are willing to accept Pt and would need SW to set up transportation. d/c set for 01/13/2021 @1000. [facility] transport via stretcher confirmation #[id number].
--- NOTE | 2021-01-10 18:00 | NUR ---
PT ATE DINNER IN BED. PT DOES CALL OUT WHEN HE NEEDS ASSISTANCE. PT USES URINAL AT BEDSIDE AND ABLE TO REACH WATER. PT YELLS OUT NURSE WHEN NEEDING ASSISTANCE.
[2021-01-10 20:23] VITALS: BP 107/62
[2021-01-10 20:40] VITALS: BP 107/62
--- NOTE | 2021-01-11 04:55 | NUR ---
PATIENT STATES SHE USES 02 AT 2L AT NIGHT BUT DOESN'T HAVE TO USE IT ALL THE TIME. RANDOM 02 SATS ON RA THRU NIGHT WERE AT 90 TO 92. PATIENT OCCASIONALLY WENT DOWN TO 84 BUT CAME BACK UP QUICKLY. CONTINUING TO MONITOR. CARTER MACK NOTIFIED. WILL NEED FURTHER ASSESSMENT. PATIENT HAS HX OF ASTHMA. RESPIRATORY TREATMENTS ORDERED THAT SHE TOOK AT HOME IN AM AND PRN.
--- NOTE | 2021-01-11 04:59 | NUR ---
PATIENT WAS IN BED ALL NIGHT. HIS ACCUCHECK WAS 101 AT HS. BED TIME SNACK GIVEN TO PATIENT. PATIENT USED URINAL THRU THE NIGHT TO VOID. NO BM THIS SHIFT. PATIENT TOOK MEDS WHOLE WITH WATER. WOUND DRESSING ON HEEL DRY AND INTACT. AMPUTATED TOES WERE CLEANED WITH BETADINE BY DAY SHIFT. WOUND ON BOTTOM CLEANED AND Z DELL APPLIED PRN. OXYCODONE 5MG GIVEN FOR FOOT PAIN 06/10 AT 0200. PATIENT WITH SEXUAL INAPPROPRIATENESS. NOTED SAYING, "WHERE'S THAT NURSE THAT IS COMING IN TO HAVE SEX WITH ME?" PATIENT DENIES SI/HI/AVH. HE IS A/0X3. ROUTINE ROUNDS TO ASSESS SAFETY AND STATUS OF PATIENT. SIDERAILS UP AND BED IN LOW POSITION AND BED ALARM IS ON.
[2021-01-11 09:15] VITALS: BP 123/64
[2021-01-11 09:16] VITALS: BP 111/72
--- NOTE | 2021-01-11 09:30 | NUR ---
PT TOOK MEDS WHOLE WITHOUT ANY ISSUES. PT STATED HE WAS IN PAIN TO LEGS AND FEET. PT WANTING TO HAVE PAIN MEDICATION. PT DIDN'T WANT TO GO TO DINING ROOM FOR BREAKFAST. PT REALLY WANTS A TV IN HIS ROOM.
--- NOTE | 2021-01-11 09:44 | NUR ---
ADM OXYCODONE 5MG PO FOR PAIN TO LOWER EXT OF 7 ON 1-10 SCALE.
--- NOTE | 2021-01-11 11:00 | NUR ---
PT UPSET AND STATED HE FEELS ISOLATED DUE TO NO TV IN HIS ROOM. PT STATED THIS PLACE WILL MAKE PEOPLE DEPRESSED. PT STATED HE CANNOT SEE THE WINDOW IN HIS ROOM. PT STATED IF HE HAS TO COME BACK HERE HE WILL JUMP OUT THE WINDOW. INFORMED PT IF HE TALKS LIKE THAT HE WILL NOT BE ABLE TO LEAVE, PT WAS ADAMANT SAYING IF HE HAS TO COME BACK HERE.
--- NOTE | 2021-01-11 12:57 | H ---
[facility] [place] [place] [address] HISTORY AND PHYSICAL Name: PALAK EWING Room #: 528B-A ADM IN M.R.#: [id number] Admission: 01/08/21 Attend Phys: Raphael Hennessy DO Discharge: Date of : 58 Report #: [id number] THIS REPORT FOR: cc: Svetlana Valencia,Svetlana Ames,Raphael Chamorro DO ~ DATE OF SERVICE: 01/08/2021 INPATIENT PSYCHIATRIC EVALUATION ATTENDING PSYCHIATRIST: Raphael Hennessy DO CHAIR INSTALLER: Keli Evans MD REASON FOR ADMISSION: Psychosis. SOURCES OF INFORMATION: Conversation with Dr. Evans, Dr. Watson, numerous medical records. HISTORY OF PRESENT ILLNESS: This is a 60-year-old black male, who was admitted medically on 01/06/2021. He was a resident at [facility], sent over for altered mental status. Reportedly, argumentative and uncooperative with staff, frequent complaints of pain that are not objectively verifiable. He has no tachycardia and no diaphoresis. He reported visual hallucinations that his granddaughter was at longterm and coming to get money. He was found to be hallucinating in the ER, asking why staff was decorating the room. He reported pain all over. He states he wants BC Powder for headache. He had amputation of right great toe and has a current wound on top of the right foot. He states having chest pain earlier this morning with shortness of breath, unable to say how long it lasted, it is better now. PAST MEDICAL HISTORY: Complicated, includes diabetes mellitus type 2, congestive heart failure, peripheral vascular disease, hypertension, chronic kidney disease, hyperlipidemia, osteomyelitis, history of chronic back pain, GERD, psychiatric anxiety. MEDICATIONS: Medications at longterm include docusate, multivitamin, acetaminophen, Minerin Creme, oxycodone 10 mg p.o. q. 4 p.r.n. moderate to severe pain, Collagenase, cyanocobalamin, atorvastatin, bisacodyl, calcium carbonate, ferrous sulfate, fluticasone, gabapentin, meropenem, hydroxyzine, lactulose, magnesium hydroxide, montelukast, omeprazole, risperidone, simethicone, albuterol sulfate. [address] [address] HISTORY AND PHYSICAL Name: PALAK EWING QUAN Room #: 528B-A [facility] IN ..#: [id number] Admission: 01/08/21 Attend Phys: Raphael Hennessy DO Discharge: Date of : 58 Report #: [id number] ALLERGIES: NSAIDS, TRAMADOL. SOCIAL HISTORY: According to chart, denied tobacco use, although I questioned that. Alcohol use, unknown. Recreational drug use, unknown. REVIEW OF SYSTEMS: CONSTITUTIONAL: Today, the patient complains of pain. Denies fever. Denies eyes pain, blurred vision. HEENT: Denies congestion, headache, ear pain, sore throat. RESPIRATORY: Denies chest pain, palpitations. GASTROINTESTINAL: Denies abdominal pain, nausea, vomiting or diarrhea. GENITOURINARY: Denies burning, urgency, hematuria. SKIN: Denies rash. NEUROLOGICAL: Denies. Otherwise, 10-point review of systems is negative. LABORATORY DATA: Recent laboratories from 01/07/2021, hematology with white count 8.0, H and H 7.0 and 18.0, platelet count 495. Chemistries: Sodium 139, potassium 3.8, chloride 105, bicarbonate 27, anion gap 7, BUN 12, creatinine 1.3, estimated GFR 68. Hemoglobin A1c 9.3, that was on 09/06/2019. Point of care glucose was 107 on 01/07/2021. He had a troponin of 8.2 in the ER. Albumin 2.4. B12 level, actually that is too far away. Urinalysis from 01/06/2021 showed 2+ protein, 1+ ketones, 1+ blood, 2+ leukocyte esterase, positive wbc's, bacteria few. He did have a urine culture that showed Acinetobacter. CURRENT MEDICATIONS: In the hospital include Humalog sliding scale, Rifampin 600 mg p.o. daily for a total of 14 days, multivitamin p.o. daily, cyanocobalamin 1000 mcg daily, Plavix 75 mg p.o. daily, atorvastatin 40 mg p.o. daily, Seroquel 25 mg p.o. t.i.d., Singulair 10 mg p.o. at bedtime, Lantus he is on 10 units b.i.d. PHYSICAL EXAMINATION: VITAL SIGNS: Today, temperature 36.3, pulse 83, respirations 14, BP 102/63. GENERAL: He is ill, malnourished appearing. He has Multi Podus Boots on. MUSCULOSKELETAL: He has weeping sacral decubiti. I have placed the patient on q. 2 hour turnings. Wound care nurse has been consulted. NEUROLOGIC: Attention limited. Concentration limited. Speech is normal rate. Thought process is linear and goal directed. Thought content focused on pain. He will not specify severity, difficult to redirect. Denied SI or HI. Denied auditory, visual, or tactile hallucinations. Memory not formally tested, believed to be impaired. Insight impaired. Judgment limited. Fund of knowledge below average. He was admitted for an NSTEMI and altered mental status. His echo in 11/2017 [facility] [address] [place] [address] HISTORY AND PHYSICAL Name: PALAK EWING QUAN Room #: 528B-A ADM IN .R.#: [id number] Admission: 01/08/21 Attend Phys: Raphael Hennessy DO Discharge: Date of : 58 Report #: [id number] was 35%. FORMULATION: A 60-year-old black male transferred from the medical floor after an NSTEMI admission with concomitant delirium. DIAGNOSES: At this time, unspecified psychosis, likely combination of NSTEMI, wounds, medication effect, rule out major neurocognitive disorder. The patient has numerous medical comorbidities including the NSTEMI, chronic kidney disease, wound care issues. On the review of CT scan done on 01/06/2021, which showed cerebral atrophy, small vessel ischemic change, no acute process. Chest x-ray showed no acute cardiopulmonary process. Hypertension, hyperlipidemia, diabetes mellitus, peripheral vascular disease. PLAN: Evaluate, stabilize, obtain collateral. I would like to continue his Seroquel as currently ordered. psych coordinator has been consulted. Also need to find out if the patient has a DPOA or surrogate decision maker. He is currently a full code. His condition is quite guarded and unfortunately age is relatively young given his medical picture. We will attempt to clear up any residual psychosis and coordinate things at [facility]. Time spent on this case is 60 minutes, greater than 50% of time was spent on review of records, coordination of care. <ELECTRONICALLY SIGNED> By: Raphael Hennessy, 01/11/21 1257 [id number] 1225 Raphael Hennessy, /nt
--- NOTE | 2021-01-11 14:30 | NUR ---
PT WANTING TO HAVE BREATHING MACHINE ON HIS FACE DUE TO FEELING SOB AND HEAVY TO BREATH. PT STATED HE DID GET BREATHING TX THREE TIMES A DAY. CALLED DR. DRAPER, AND OBTAINED ORDERS FOR RT TREATMENTS.
--- NOTE | 2021-01-11 15:21 | NUR ---
PT OUT IN DINING ROOM PT YELLING FOR NURSE. PT WANTING NURSE NOT SANDER OPERATOR FOR ASSISTANCE. PT WANTING PAIN MEDICATION. ADM OXYCODONE 5MG PO FOR PAIN TO FEET.
--- NOTE | 2021-01-11 16:00 | NUR ---
AROUND THIS TIME PT RECIEVED RT TREATMENT.
[2021-01-11 21:00] VITALS: BP 123/64
[2021-01-11 22:31] VITALS: BP 123/64
[2021-01-11 23:43] VITALS: BP 123/64
--- NOTE | 2021-01-11 23:55 | NUR ---
Assumed care on 01/17/21 @ 1900, seated in Jo chair in the day room watching TV. Calls out for nurse. Cooperates with assessment and med compliant. Oxy 10mg provided as scheduled for pain. Acucheck 141, no s/s necessary. Returned to bed with Eren Lift and x4 staff assist. Uses urinal at bedside. Incontinent care given. Wounds on buttocks leaking fluid. Bed in low position, bed alarm set, will continue to monitor for safety and comfort as per unit protocol.
[2021-01-12 08:00] VITALS: BP 109/68
[2021-01-12 11:34] VITALS: BP 109/68
--- NOTE | 2021-01-12 17:39 | NUR ---
alert, calm and cooperative. Complains pain in feet and back, pain medication given and worked. complains of itching in the backm Benadyl given and worked. patient finished 100% of three meals, no nausea or vomitting. Dressing changed, tolerated well. lying in the chair in the breakroom now, with eyes closed, chest up and down. will keep monitoring.
[2021-01-12 19:51] VITALS: BP 101/65
--- NOTE | 2021-01-13 05:37 | NUR ---
RECIEVED CARE OF THIS PATIENT AT 1900. PATIENT ALERT AND ORIENTED PERSON AND PLACE. REBECCA LOWER EXT EDEMATOUS. DRESSING ON R LOWER EXT D/I. ACCUCHECK WAS 152, RECIEVED 3 UNITS LISPRO INSULIN. C/O PAIN MED GIVEN. SLEPT MOST OF NIGHT.
[2021-01-13] MEDS ORDERED: OXYCONTIN10 M1 PO (07:01)
[2021-01-13] MEDS ORDERED: TYLENOL EXTRA500 MG PO (07:02)
[2021-01-13] MEDS ORDERED: GABAPENTIN 100100 MG PO (07:02)
[2021-01-13] MEDS ORDERED: SEROQUEL 25 MG25 M1 PO (07:03)
[2021-01-13] MEDS ORDERED: SINGULAIR 10 MG10 M1 PO (07:03)
[2021-01-13] MEDS ORDERED: LANTUS100 UNIT/M SUBQ (07:04)
[2021-01-13] MEDS ORDERED: AMMONIUM LACTA226 GM TOP (07:05)
[2021-01-13 09:15] VITALS: BP 102/52
--- NOTE | 2021-01-13 12:41 | NUR ---
Assumed pt care at 0700. pt was alert and oriented x4. pt was in his room alert. His goal was towards D/C. DENIES SI/HI, RATED PAIN AT 5. Assessments completed VSS. pt took his medication whole , no difficulty noted. pt was D/C at 0930 with D/C instructions, D/C summary, precription scripts. and his belongings. pt was accompanied to the ER exit door with senior writer and the [employer] staffs. pt was transport by [employer]. Report was attempted to [facility], Nurse at [facility] did not excelsior picker the phone.
--- NOTE | 2021-01-14 21:38 | D ---
[facility] [place] [address] DISCHARGE SUMMARY Name: PALAK EWING Room #: 528B-A [facility] IN M.R.#: [id number] Admission: 01/08/21 Attend Phys: Raphael Hennessy DO Discharge: 01/13/21 Date of : 58 Report #: [id number] THIS REPORT FOR: cc: Svetlana Valencia,Svetlana Ames,Raphael Chamorro DO ~ DATE OF SERVICE: 01/13/2021 INPATIENT PSYCHIATRIC DISCHARGE SUMMARY ATTENDING PSYCHIATRIST: Raphael Hennessy DO. TAX COLLECTOR AT THE TIME OF DISCHARGE: Dr. Evans. DISCHARGE DIAGNOSES: Mood disorder due to general medical condition, mainly depressed due to ankylosing spondylitis, multiple decubitus wounds, deconditioning and immobility, chronic pain, unspecified psychosis, resolved at this time. MEDICAL COMORBIDITIES: As follows, recent hospital admission on medical side for an NSTEMI, history of cardiomyopathy with an EF of 35%, history of coronary artery disease, hypertension, hyperlipidemia, diabetes mellitus, peripheral vascular disease with wounds, history of right hallux amputation, chronic kidney disease, COPD, and history of GERD. DISCHARGE PLAN: The patient is discharging to [facility]. Psychiatric and medical care by receiving facility. ACTIVITY LEVEL: As tolerated. He is a max full assist for transfers, bathing and most of grooming. diet: diabetic 2000 calorie DISCHARGE MEDICATIONS: Docusate 100 mg oral twice as needed for constipation, multivitamin oral daily for supplementation, Coreg 3.125 mg twice daily for hypertension, hold for blood pressure is less than 100 systolic, atorvastatin calcium 40 mg oral daily for hyperlipidemia, albuterol sulfate 1 puff inhalation q. 6 hours p.r.n. for wheezing, cyanocobalamin 1000 mcg sublingual daily for supplementation, Plavix 75 mg oral daily for heart attack, stroke prevention, oxycodone extended release 10 mg oral daily at 11:30 and 2100 for chronic pain, acetaminophen scheduled 1000 mg oral at 0900, 1500, 2100 for chronic pain, on Neurontin 200 mg oral daily at 0800, 1300, 2100 for neuropathy and pain, Seroquel 25 mg oral 3 times a day for anxiety, Singulair 10 mg oral daily for asthma, Lantus 10 units subcutaneous twice daily for diabetes mellitus, ammonium lactate 4 grams topical apply daily for xerosis of skin of his lower extremities. [facility] [address] [place] [address] DISCHARGE SUMMARY Name: PALAK EWING QUAN Room #: 528B-A [facility] IN [facility]#: [id number] Admission: 01/08/21 Attend Phys: Raphael Hennessy DO Discharge: 01/13/21 Date of : 58 Report #: [id number] LABORATORY DATA: From 01/08/2021 forward was mainly just the blood sugars looking at the last 24 hours have ranged between 97 and 165. REASON FOR ADMISSION: Back on 01/08/2021, 60-year-old black male, referred from the [facility] at [facility]. He had been reportedly argumentative and uncooperative with staff, frequent complaints of pain, reporting seeing relatives, was brought to the ER when the NSTEMI was diagnosed. Initially, the patient was managed conservatively by Cardiology and then transferred to the [facility] for further psychiatric evaluation. HOSPITAL COURSE: The patient was admitted to Geriatric Psychiatry Unit. I had been ask side bar when he was medically admitted and advised the Seroquel 25 mg 3 times a day. On the Geriatric Psych Unit, it was clear, the patient was not demented. He has very chronic debilitating general medical issues, which demand ongoing attention including being turned every 2 hours to prevent further skin breakdown. The patient ate well, got Ensure Max with lunch. On the day of discharge, he was not suicidal or homicidal, felt to be stable for continued care in his nursing facility. PHYSICAL EXAMINATION: VITAL SIGNS: On the day of discharge, temperature 36.1, pulse 103, respirations 19, BP 102/52, O2 sat 98%. MUSCULOSKELETAL: Atrophy, weakness in all extremities, which is his baseline. MENTAL STATUS EXAMINATION: This is a well-developed, very ill, debilitated appearing black male, appearing older than stated age. Attention is fair. Concentration is fair to limited. Speech is slightly slowed, normal volume. Thought process linear and goal oriented. Thought content focused on how he was getting the penitentiary, getting pain management and somatic issues. No psychomotor agitation. No psychomotor retardation. Denied suicidal or homicidal ideation. Some helplessness. Denied hopelessness. Mood and affect was constricted, congruent. Insight is fair. Judgment is fair to limited. Fund of knowledge is below average. PROGNOSIS: For this patient is guarded given the extent of his medical problems debility at the age of 60. Recommend ongoing general medical and psychiatric care at his nursing facility. <ELECTRONICALLY SIGNED> By: Raphael Hennessy DO 01/14/212137 36 30 Raphael Hennessy DO /nt
== END 2021-01-13 09:23 | DRG 885 ==
LOC: SBH 16:24
PROVIDERS: ADMIT Psychiatry & Neurology Psychiatry; ATTEND Psychiatry & Neurology Psychiatry
DX: F39 Unspecified mood [affective] disorder (principal); E43 Unspecified severe protein-calorie malnutrition; N18.9 Chronic kidney disease, unspecified; L89.613 Pressure ulcer of right heel, stage 3; L89.153 Pressure ulcer of sacral region, stage 3; I21.4 Non-ST elevation (NSTEMI) myocardial infarction; I42.9 Cardiomyopathy, unspecified; I13.0 Hypertensive heart and chronic kidney disease with heart failure and stage 1 through stage 4 chronic kidney disease, or unspecified chronic kidney disease; M31.9 Necrotizing vasculopathy, unspecified; M45.9 Ankylosing spondylitis of unspecified sites in spine; R53.81 Other malaise; E11.22 Type 2 diabetes mellitus with diabetic chronic kidney disease; K21.9 Gastro-esophageal reflux disease without esophagitis; F29 Unspecified psychosis not due to a substance or known physiological condition; I25.10 Atherosclerotic heart disease of native coronary artery without angina pectoris; E78.5 Hyperlipidemia, unspecified; I50.9 Heart failure, unspecified; L89.899 Pressure ulcer of other site, unspecified stage; F32.9 Major depressive disorder, single episode, unspecified; L97.529 Non-pressure chronic ulcer of other part of left foot with unspecified severity; J44.9 Chronic obstructive pulmonary disease, unspecified; L97.519 Non-pressure chronic ulcer of other part of right foot with unspecified severity; E11.51 Type 2 diabetes mellitus with diabetic peripheral angiopathy without gangrene; G89.29 Other chronic pain; M54.9 Dorsalgia, unspecified; Z68.25 Body mass index [BMI] 25.0-25.9, adult; Z79.899 Other long term (current) drug therapy; Z86.718 Personal history of other venous thrombosis and embolism
CPT/HCPCS: 10880

== ENCOUNTER 2021-07-08 09:12 | Emergency (ER) | payer OTHER ==
[~2021-07-08] VITALS: Ht 188 cm; Wt 131.5 kg
[~2021-07-08 09:12] MED LIST changes: +AMMONIUM LACTA226 GM TOP; +GABAPENTIN 100100 MG PO; +LANTUS100 UNIT/M SUBQ; +OXYCONTIN10 M1 PO; +SINGULAIR 10 MG10 M1 PO; +TYLENOL EXTRA500 MG PO
[2021-07-08 09:56] LABS: CALCIUM 8.6 mg/dL (8.5-10.1); CREATININE 1.6 mg/dL (0.7-1.3); POTASSIUM 4.8 mmol/L (3.5-5.1)
[2021-07-08 10:01] LABS: ABSOLUTE NEUTROPHILS 8.3 thou/uL (1.4-8.2); BASOPHILS 0.5 % (0.0-2.0); EOSINOPHILS 0.8 % (0.0-3.0); HEMATOCRIT 34.4 % (42.0-52.0); HEMOGLOBIN 10.6 gm/dL (14.0-18.0); LYMPHOCYTES 7.6 % (24.0-44.0); MCH 23.5 pg (26.0-34.0); MCHC 30.8 g/dL (28.0-37.0); MCV 76.3 fL (80.0-100.0); MONOCYTES 5.8 % (1.0-8.0); PLATELET COUNT 472 thou/uL (150-400); POLYS 85.3 % (36.0-66.0); RBC 4.51 mil/uL (4.50-6.00); RDW 16.6 % (10.5-14.5); WBC 9.7 thou/uL (4.0-11.0)
[2021-07-08 10:02] LABS: ALBUMIN 2.2 g/dL (3.4-5.0); TOTAL BILIRUBIN 0.8 mg/dL (0.2-1.0); TOTAL PROTEIN 8.3 g/dL (6.4-8.2)
[2021-07-08 13:21] VITALS: BP 122/71
== END 2021-07-08 13:24 ==
LOC: ER 09:12
PROVIDERS: Student in an Organized Health Care Education/Training Program
DX: M79.605 Pain in left leg (principal); I12.9 Hypertensive chronic kidney disease with stage 1 through stage 4 chronic kidney disease, or unspecified chronic kidney disease; E11.22 Type 2 diabetes mellitus with diabetic chronic kidney disease; N18.9 Chronic kidney disease, unspecified; E78.5 Hyperlipidemia, unspecified; J44.9 Chronic obstructive pulmonary disease, unspecified; K21.9 Gastro-esophageal reflux disease without esophagitis; Z79.899 Other long term (current) drug therapy; Z88.5 Allergy status to narcotic agent; Z88.6 Allergy status to analgesic agent

== ENCOUNTER 2021-08-15 06:16 | Emergency (ER) | payer OTHER ==
[~2021-08-15] VITALS: Ht 185.4 cm; Wt 81.7 kg
[2021-08-15] MEDS ORDERED: FLORANEX TABLE1 EACH PO (06:34)
[2021-08-15 07:18] LABS: HEMOGLOBIN 11.2 gm/dL (14.0-18.0); MCH 22.7 pg (26.0-34.0); MCHC 29.5 g/dL (28.0-37.0); MCV 77.1 fL (80.0-100.0); PLATELET COUNT 452 thou/uL (150-400); RBC 4.93 mil/uL (4.50-6.00); RDW 19.2 % (10.5-14.5); WBC 6.9 thou/uL (4.0-11.0)
[2021-08-15 07:30] LABS: CALCIUM 9.2 mg/dL (8.5-10.1); CREATININE 1.4 mg/dL (0.7-1.3); POTASSIUM 4.1 mmol/L (3.5-5.1)
[2021-08-15] MEDS ORDERED: ASCORBIC ACID500 MG PO (08:14)
[2021-08-15] MEDS ORDERED: ASA81BEC PO (08:25)
[2021-08-15] MEDS ORDERED: BENADRYL25 MG PO (08:26)
[2021-08-15] MEDS ORDERED: LAXATIVE5 M1 PO (08:27)
[2021-08-15] MEDS ORDERED: HUMIRA40 MG/0.8 SUBQ (08:29)
[2021-08-15] MEDS ORDERED: MECLIZINE HCL25 M1 PO (08:31)
[2021-08-15] MEDS ORDERED: MIRALAX119 GM PO (08:31)
[2021-08-15] MEDS ORDERED: TESSALON PERLE100 M1 PO (08:32)
[2021-08-15] MEDS ORDERED: ZINC50 M3 PO (08:34)
[2021-08-15 08:35] LABS: ATYPICAL LYMPHS 1 %
[2021-08-15] MEDS ORDERED: PERCOCET 10-321 EAC1 PO (08:35)
[2021-08-15 08:36] LABS: ANISOCYTOSIS 1+
[2021-08-15] MEDS ORDERED: AMOX TR-K CLV1 EAC4 PO (08:58)
[2021-08-15] MEDS ORDERED: NORCO 10-325 T1 EACH PO (08:58)
[2021-08-15 09:27] VITALS: BP 128/78
== END 2021-08-15 10:17 ==
LOC: ER 06:16
PROVIDERS: Emergency Medicine
DX: E11.621 Type 2 diabetes mellitus with foot ulcer (principal); L97.418 Non-pressure chronic ulcer of right heel and midfoot with other specified severity; I25.10 Atherosclerotic heart disease of native coronary artery without angina pectoris; I73.9 Peripheral vascular disease, unspecified; E78.5 Hyperlipidemia, unspecified; E11.22 Type 2 diabetes mellitus with diabetic chronic kidney disease; K21.9 Gastro-esophageal reflux disease without esophagitis; I12.9 Hypertensive chronic kidney disease with stage 1 through stage 4 chronic kidney disease, or unspecified chronic kidney disease; N18.9 Chronic kidney disease, unspecified; J44.9 Chronic obstructive pulmonary disease, unspecified; F12.90 Cannabis use, unspecified, uncomplicated; Z79.891 Long term (current) use of opiate analgesic; Z79.82 Long term (current) use of aspirin; Z79.1 Long term (current) use of non-steroidal anti-inflammatories (NSAID); Z79.899 Other long term (current) drug therapy; Z88.8 Allergy status to other drugs, medicaments and biological substances; Z88.6 Allergy status to analgesic agent

== ENCOUNTER → 2021-09-10 | Outpatient (CLI) | payer OTHER ==
[~2021-09-10] MED LIST changes: +AMOX TR-K CLV1 EAC4 PO; +ASA81BEC PO; +ASCORBIC ACID500 MG PO; +FLORANEX TABLE1 EACH PO; +HUMIRA40 MG/0.8 SUBQ; +LAXATIVE5 M1 PO; +MECLIZINE HCL25 M1 PO; +MIRALAX119 GM PO; +NORCO 10-325 T1 EACH PO; +PERCOCET 10-321 EAC1 PO; +TESSALON PERLE100 M1 PO; +ZINC50 M3 PO
== END ==
LOC: HYPER 10:27
PROVIDERS: ATTEND Emergency Medicine
DX: E11.621 Type 2 diabetes mellitus with foot ulcer (principal); L89.613 Pressure ulcer of right heel, stage 3; L97.411 Non-pressure chronic ulcer of right heel and midfoot limited to breakdown of skin; E11.51 Type 2 diabetes mellitus with diabetic peripheral angiopathy without gangrene; E11.40 Type 2 diabetes mellitus with diabetic neuropathy, unspecified; R60.1 Generalized edema; I25.10 Atherosclerotic heart disease of native coronary artery without angina pectoris; E78.5 Hyperlipidemia, unspecified; E11.22 Type 2 diabetes mellitus with diabetic chronic kidney disease; I12.9 Hypertensive chronic kidney disease with stage 1 through stage 4 chronic kidney disease, or unspecified chronic kidney disease; N18.9 Chronic kidney disease, unspecified; J44.9 Chronic obstructive pulmonary disease, unspecified; K21.9 Gastro-esophageal reflux disease without esophagitis; M06.9 Rheumatoid arthritis, unspecified; E66.9 Obesity, unspecified; F32.9 Major depressive disorder, single episode, unspecified; Z68.25 Body mass index [BMI] 25.0-25.9, adult; Z89.612 Acquired absence of left leg above knee; Z79.899 Other long term (current) drug therapy; Z87.891 Personal history of nicotine dependence; Z79.4 Long term (current) use of insulin

== ENCOUNTER → 2021-10-01 | Outpatient (CLI) | payer OTHER | LOC: HYPER 09:03 | PROVIDERS: ATTEND Emergency Medicine | DX: E11.621 Type 2 diabetes mellitus with foot ulcer (principal); L89.613 Pressure ulcer of right heel, stage 3; L97.411 Non-pressure chronic ulcer of right heel and midfoot limited to breakdown of skin; E11.51 Type 2 diabetes mellitus with diabetic peripheral angiopathy without gangrene; E11.40 Type 2 diabetes mellitus with diabetic neuropathy, unspecified; E11.21 Type 2 diabetes mellitus with diabetic nephropathy; E11.22 Type 2 diabetes mellitus with diabetic chronic kidney disease; I12.9 Hypertensive chronic kidney disease with stage 1 through stage 4 chronic kidney disease, or unspecified chronic kidney disease; N18.9 Chronic kidney disease, unspecified; R60.1 Generalized edema; E78.5 Hyperlipidemia, unspecified; E66.9 Obesity, unspecified; J44.9 Chronic obstructive pulmonary disease, unspecified; K21.9 Gastro-esophageal reflux disease without esophagitis; I25.10 Atherosclerotic heart disease of native coronary artery without angina pectoris; M06.9 Rheumatoid arthritis, unspecified; F32.9 Major depressive disorder, single episode, unspecified; Z68.25 Body mass index [BMI] 25.0-25.9, adult; Z89.612 Acquired absence of left leg above knee; Z87.891 Personal history of nicotine dependence; Z79.4 Long term (current) use of insulin ==

== ENCOUNTER → 2021-10-16 | Outpatient (CLI) | payer OTHER | LOC: HYPER 09:44 | PROVIDERS: ATTEND Emergency Medicine | DX: E11.621 Type 2 diabetes mellitus with foot ulcer (principal); L89.613 Pressure ulcer of right heel, stage 3; L97.411 Non-pressure chronic ulcer of right heel and midfoot limited to breakdown of skin; E11.51 Type 2 diabetes mellitus with diabetic peripheral angiopathy without gangrene; R60.1 Generalized edema; E11.21 Type 2 diabetes mellitus with diabetic nephropathy; I25.10 Atherosclerotic heart disease of native coronary artery without angina pectoris; E11.22 Type 2 diabetes mellitus with diabetic chronic kidney disease; I12.9 Hypertensive chronic kidney disease with stage 1 through stage 4 chronic kidney disease, or unspecified chronic kidney disease; N18.9 Chronic kidney disease, unspecified; E78.5 Hyperlipidemia, unspecified; J44.9 Chronic obstructive pulmonary disease, unspecified; K21.9 Gastro-esophageal reflux disease without esophagitis; E66.9 Obesity, unspecified; F32.9 Major depressive disorder, single episode, unspecified; Z68.25 Body mass index [BMI] 25.0-25.9, adult; Z87.891 Personal history of nicotine dependence; Z79.82 Long term (current) use of aspirin; Z79.899 Other long term (current) drug therapy; Z89.612 Acquired absence of left leg above knee ==

== ENCOUNTER → 2021-11-19 | Outpatient (CLI) | payer MEDICARE, OTHER | LOC: HYPER 07:45 | PROVIDERS: ATTEND Emergency Medicine | DX: E11.621 Type 2 diabetes mellitus with foot ulcer (principal); L89.613 Pressure ulcer of right heel, stage 3; L97.411 Non-pressure chronic ulcer of right heel and midfoot limited to breakdown of skin; E11.51 Type 2 diabetes mellitus with diabetic peripheral angiopathy without gangrene; E11.21 Type 2 diabetes mellitus with diabetic nephropathy; R60.1 Generalized edema; E11.40 Type 2 diabetes mellitus with diabetic neuropathy, unspecified; E11.22 Type 2 diabetes mellitus with diabetic chronic kidney disease; I12.9 Hypertensive chronic kidney disease with stage 1 through stage 4 chronic kidney disease, or unspecified chronic kidney disease; N18.9 Chronic kidney disease, unspecified; I25.10 Atherosclerotic heart disease of native coronary artery without angina pectoris; J44.9 Chronic obstructive pulmonary disease, unspecified; E78.5 Hyperlipidemia, unspecified; K21.9 Gastro-esophageal reflux disease without esophagitis; M45.5 Ankylosing spondylitis of thoracolumbar region; F32.9 Major depressive disorder, single episode, unspecified; Z87.891 Personal history of nicotine dependence; Z79.899 Other long term (current) drug therapy; Z89.612 Acquired absence of left leg above knee ==

== ENCOUNTER → 2021-11-26 | Outpatient (CLI) | payer MEDICARE, OTHER | LOC: NUC 08:03 | PROVIDERS: ATTEND Internal Medicine | DX: I12.9 Hypertensive chronic kidney disease with stage 1 through stage 4 chronic kidney disease, or unspecified chronic kidney disease (principal); N18.9 Chronic kidney disease, unspecified; R06.02 Shortness of breath; E78.5 Hyperlipidemia, unspecified ==

== ENCOUNTER → 2021-12-25 | Outpatient (CLI) | payer MEDICARE, OTHER | LOC: HYPER 08:25 | PROVIDERS: ATTEND Emergency Medicine | DX: E11.621 Type 2 diabetes mellitus with foot ulcer (principal); L89.613 Pressure ulcer of right heel, stage 3; L97.411 Non-pressure chronic ulcer of right heel and midfoot limited to breakdown of skin; L84 Corns and callosities; E11.51 Type 2 diabetes mellitus with diabetic peripheral angiopathy without gangrene; E11.21 Type 2 diabetes mellitus with diabetic nephropathy; R60.1 Generalized edema; E11.40 Type 2 diabetes mellitus with diabetic neuropathy, unspecified; E11.22 Type 2 diabetes mellitus with diabetic chronic kidney disease; I12.9 Hypertensive chronic kidney disease with stage 1 through stage 4 chronic kidney disease, or unspecified chronic kidney disease; N18.9 Chronic kidney disease, unspecified; E66.9 Obesity, unspecified; E78.5 Hyperlipidemia, unspecified; I25.10 Atherosclerotic heart disease of native coronary artery without angina pectoris; J44.9 Chronic obstructive pulmonary disease, unspecified; K21.9 Gastro-esophageal reflux disease without esophagitis; M45.5 Ankylosing spondylitis of thoracolumbar region; F32.9 Major depressive disorder, single episode, unspecified; Z87.891 Personal history of nicotine dependence; Z89.612 Acquired absence of left leg above knee; Z68.25 Body mass index [BMI] 25.0-25.9, adult ==